=== PATIENT | female | born 1945 | race Caucasian/White ===

== ENCOUNTER 2021-03-09 20:27 | Inpatient (IN) | payer MEDICARE, SELFPAY ==
--- NOTE | ~2021-03-09 | MR_ITS ---
EXAMINATION: MR abdomen wo/w con DATE: 03/15/2021 13:15 INDICATION: Liver mass. TECHNIQUE: Magnetic resonance imaging (MRI) of the abdomen was performed without and with 17 mL Multi Anna intravenous contrast. Sequences included coronal T2-weighted FS FSE, coronal and axial FS FIEST A, axial T2-weighted FSE, coronal LAVA-flex, axial STIR FSE, axial DWI, axial dual-echo T1-weighted F SPGR, and axial LAVA. Postcontrast sequences included coronal LAVA-flex and a time course of axial LA VA. COMPARISON: CT abdomen and pelvis 03/12/2021 FINDINGS: There are small pleural effusions. There is heterogeneous diffuse hepatic steatosis. The gallbladder is absent. Calcifications in the spleen are consistent with old granulomatous disease. The pancreas a nd left adrenal gland are normal. There is a 4.3 cm mass of fat in right adrenal gland, consistent wi th a myelolipoma. There are cysts and hemorrhagic cysts in the kidneys measuring up to 4.5 cm on the right. There are no pathologically enlarged lymph nodes. There is no free intraperitoneal fluid. IMPRESSION: 1. Heterogeneous diffuse hepatic steatosis correlating with the CT abnormalities. Reviewed, dictated and finalized at location A. IMPRESSION: 1. Heterogeneous diffuse hepatic steatosis correlating with the CT abnormalitie s.
--- NOTE | ~2021-03-09 | CT_ITS ---
EXAMINATION: CT abdomen pelvis wo con DATE: 03/09/2021 23:11 INDICATION: Generalized abdominal pain. TECHNIQUE: Computed tomography (CT) of the abdomen and pelvis was performed without intravenous contr ast. Automated exposure control and iterative reconstruction technique were employed. The dose-length product was 909.33 mGy-cm. COMPARISON: None. FINDINGS: The visualized portions of the lung bases demonstrate mild atelectasis. No pleural effusion . The heart size is normal. There are coronary artery calcifications. No pericardial effusion. There is diffuse hepatic steatosis. There is a 1.3 cm mass in left hepatic lobe. There is a 2.5 cm mass in right hepatic lobe. Calcifications in the spleen are consistent with old granulomatous disease. The g allbladder is absent. The pancreas and left adrenal gland are normal. There is a 4.0 cm mass in right adrenal gland containing fat, consistent with a myelolipoma. There are cysts in the kidneys measurin g up to 4.3 cm on the right. There are masses in both kidneys measuring soft tissue attenuation measu ring up to 2.6 cm on the right. There are no dilated loops of bowel. The appendix is not visualized. There are no pathologically enlarged lymph nodes. There is no free intraperitoneal fluid. There is a small right inguinal hernia containing fat. There is a small hematoma superficial to the right inguin al vessels. There is an old healed fracture of left inferior pubic ramus. There is a burst fracture o f L1, likely chronic. IMPRESSION: 1. Two liver masses measuring up to 2.5 cm, which may be benign masses or metastatic disease. Abdomen MRI without and with contrast is recommended. 2. Bilateral kidney masses measuring up to 2.6 cm that may be hemorrhagic cysts and/or neoplasm(s). A bdomen MRI without and with contrast is recommended. Reviewed, dictated and finalized at location A. IMPRESSION: 1. Two liver masses measuring up to 2.5 cm, which may be benign masses or metas tatic disease. Abdomen MRI without and with contrast is recommended. 2. Bilateral kidney masses measuring up to 2.6 cm that may be hemorrhagic cysts and/or neoplasm(s). Abdomen MRI without and with contrast is recommended.
--- NOTE | ~2021-03-09 | XR_ITS ---
EXAMINATION: XR chest 2V 03/14/2021 14:10 INDICATION: Fever PROCEDURE: 2 view chest COMPARISON: 03/09/2021 FINDINGS: The lungs are clear. The cardiomediastinal silhouette is within normal limits. There are no pleural effusions. There is no pneumothorax suspected. Status post median sternotomy for CABG. IMPRESSION: 1: NO ACUTE CARDIOPULMONARY DISEASE. Reviewed, dictated and finalized at location A.
--- NOTE | ~2021-03-09 | XR_ITS ---
EXAMINATION: XR chest 2V DATE: 03/09/2021 21:34 INDICATION: Shortness of breath. TECHNIQUE: Frontal and lateral views of the chest were obtained. COMPARISON: None. FINDINGS: The chest demonstrates clear lungs without pneumonia, pleural effusion, or pneumothorax. Th e heart size is normal. Median sternotomy wires and mediastinal surgical clips are seen, likely from prior coronary artery bypass grafting. There is a chronic compression fracture of L1. IMPRESSION: 1. No acute cardiopulmonary disease. Reviewed, dictated and finalized at location A.
--- NOTE | ~2021-03-09 | CT_ITS ---
EXAMINATION: CT abdomen pelvis w con DATE: 03/12/2021 16:44 INDICATION: Bacteremia. TECHNIQUE: Computed tomography (CT) of the abdomen and pelvis was performed with 100 mL Omnipaque 350 intravenous contrast. Automated exposure control and iterative reconstruction technique were employe d. The dose-length product was 1011.29 mGy-cm. COMPARISON: CT abdomen and pelvis 03/09/2021 FINDINGS: The visualized portions of the lung bases demonstrate mild atelectasis. No pleural effusion . The heart size is normal. There are coronary artery calcifications. No pericardial effusion. There is heterogeneous diffuse hepatic steatosis. There is a 1.3 cm mass in left hepatic lobe. There is a 2 .5 cm mass in right hepatic lobe. These findings are indeterminate for contrast enhancement. The gall bladder is absent. Calcifications in the spleen are consistent with old granulomatous disease. The pa ncreas and left adrenal gland are normal. There is a 4.3 cm mass in right adrenal gland containing fa t, consistent with a myelolipoma. There are cysts and hemorrhagic cysts in the kidneys measuring up t o 3.9 cm on the right. There are no dilated loops of bowel. The appendix is not visualized. There are no pathologically enlarged lymph nodes. There is no free intraperitoneal fluid. There is an old heal ed fracture of left inferior pubic ramus. There is a burst fracture of L1, likely chronic. IMPRESSION: 1. Two liver masses measuring up to 2.5 cm, which may be benign masses or metastatic disease. Abdomen MRI without and with contrast is recommended. Reviewed, dictated and finalized at location A. IMPRESSION: 1. Two liver masses measuring up to 2.5 cm, which may be benign masses or metas tatic disease. Abdomen MRI without and with contrast is recommended.
--- NOTE | ~2021-03-09 | US_ITS ---
EXAMINATION: US venous doppler [facility] DATE: 03/12/2021 11:04 INDICATION: Left lower limb pain TECHNIQUE: Spears scale images without and with compression and Doppler images of the left lower extrem ity veins were obtained. COMPARISON: None FINDINGS: The left common femoral vein, profunda femoral vein, femoral vein, popliteal vein, peroneal trunk, posterior tibial veins, and greater saphenous vein are patent. IMPRESSION: 1. Patent left lower extremity veins. No evidence of deep venous thrombosis. Reviewed, dictated and finalized at location A.
--- NOTE | ~2021-03-09 | XR_ITS ---
XR chest 2V DATE: 03/11/2021 13:26 INDICATION: Shortness of breath. Bacteremia. TECHNIQUE: AP and lateral views COMPARISON: 03/26/2021 AP and lateral chest FINDINGS: Status post sternotomy. Cardiomegaly. Aortic arch and coronary artery calcification. No pul monary vascular congestion or pleural effusion or pneumothorax. The lungs are clear of infiltrate or consolidation. Osteopenia. Chronic loss of height and anterior wedging of L1. Degenerative spurring of the thoracic spine. IMPRESSION: Cardiomegaly Aortic calcification No active urinary disease Reviewed, dictated and finalized at location B.
--- NOTE | ~2021-03-09 | US_ITS ---
EXAMINATION: US abdomen limited DATE: 03/11/2021 10:07 INDICATION: Liver masses on CT TECHNIQUE: Multiple grayscale and Doppler ultrasound images of the abdomen were obtained. COMPARISON: 03/09/2021 FINDINGS: The head and body of the pancreas are normal. The pancreatic tail is obscured by bowel gas. The liver appears normal with normal echogenicity and echotexture. The liver masses described on CT are not demonstrated. No surface nodularity. Normal hepatopetal flow in the main portal vein. The gal lbladder is surgically absent. The normal common bile duct measures 3 mm. There is a 1.8 cm hypoechoi c mass of the right kidney. A 1.6 cm mass of the mid kidney appears partially cystic. There is a 4.1 cm cyst of the right kidney lower pole. IMPRESSION: 1. Liver masses described on recent CT not demonstrated. Further evaluation by MRI without and with c ontrast is recommended. 2. Indeterminate right kidney masses which can be simultaneously evaluated by MRI without and with co ntrast. Reviewed, dictated and finalized at location A. IMPRESSION: 1. Liver masses described on recent CT not demonstrated. Further evaluation by MRI without and with contrast is recommended. 2. Indeterminate right kidney masses which can be simultaneously evaluated by M RI without and with contrast.
[2021-03-09 20:23] VITALS: BP 127/63; PULSE 82; RESP 19; TEMP 38.8; O2SAT 100
--- NOTE | 2021-03-09 21:06 | ECG_ITS ---
Measurements Intervals [place] Rate: 84 P: 30 AL: 153 QRS: -65 QRSD: 142 T: 61 QT: 403 QTc: 476 Interpretive Statements SINUS RHYTHM WITH FREQUENT VENTRICULAR PREMATURE COMPLEXES RIGHT BUNDLE BRANCH BLOCK LEFT ANTERIOR FASCICULAR BLOCK BASELINE ARTIFACT- I, II, AVR, AVL ABNORMAL ECG Electronically Signed On 03-10-2021 6:02:28 CDT by Jair Kellogg D.O.
[2021-03-09 22:18] LABS: Glucose Point of Care > 500 mg/dl (65-105)
[2021-03-09] MEDS: SODIUM CHLORIDE 0.9% IV 1,000 ML 999 ML IV CONT ×2 (22:23→23:23)
[2021-03-09 22:24] LABS: Basophils Percent Auto 0.1 % (0.2-1.2); Eosinophils Percent Auto 0.1 % (0-4.4); Hemoglobin 11.5 g/dL (12.0-15.0); Immature Granulocyte Absolute 0.09 K/mm3 (0.00-0.031); Immature Granulocyte Percent A 1.1 % (0-0.5); Lymphocytes Absolute Auto 0.57 K/mm3 (0.9-3.2); Lymphocytes Percent Auto 7.1 % (18.3-44.2); Mean Corpuscular HGB Conc 31.9 g/dl (32-36); Mean Corpuscular Hemoglobin 29.6 pg (26-34); Mean Corpuscular Volume 92.5 fl (80-100); Mean Platelet Volume 12.4 fl (7.4-10.4); Monocytes Absolute Auto 0.5 K/mm3 (0.1-0.6); Monocytes Percent Auto 6.3 % (2.6-8.5); Neutrophils Absolute Auto 6.8 K/mm3 (1.3-6.7); Neutrophils Percent Auto 85.3 % (45.5-73.1); Platelet Count Result 180 k/mm3 (150-375); Red Blood Count 3.89 M/mm3 (4.2-5.4); Red Cell Distribution Width 14.9 % (11.5-14.5)
[2021-03-09 22:33] LABS: Add Urine Microscopic? YES; Appearance Urine Clear (Clear); Bacteria Urine Trace /hpf; Bilirubin Urine Negative (Negative); Blood Urine 1+ (Negative); Color Urine Yellow (Yellow); Glucose Urine UA 3+ mg/dL (Negative); Ketones Urine Negative (Negative); Leukocyte Esterase Ur Negative LEU/UL (Negative); Mucus Urine Rare /lpf; Nitrate Urine Negative (Negative); Protein Urine 1+ mg/dL (Negative); RBC Urine 0-2 /hpf (0-2); Squamous Epithelial Cell Urine Rare /hpf (Few); Urobilinogen Urine Negative mg/dL (<2.0)
[2021-03-09 22:35] LABS: Ethanol < 10 mg/dL (<10)
[2021-03-09 22:40] LABS: Alanine Aminotransferase 26 U/L (4-35); Albumin Level 3.9 g/dL (3.5-5.1); Alkaline Phosphatase 187 U/L (38-126); Anion Gap 11 mmol/L (8-16); Aspartate Amino Transferase 24 U/L (14-36); Bilirubin,Total 0.7 mg/dL (0.2-1.3); Blood Urea Nitrogen 63 mg/dL (7-17); Calcium 9.7 mg/dL (8.4-10.2); Carbon Dioxide 22 mmol/L (22-30); Chloride 102 mmol/L (98-107); Estimated Glomerular Filt Rate 37; Glucose 613 mg/dL (65-110); Potassium 4.6 mmol/L (3.4-5.0); Sodium 135 mmol/L (137-145)
[2021-03-09 22:41] LABS: Lipase 367 U/L (23-300)
[2021-03-09 22:43] LABS: Lactic Acid Reflex 1.3 mmol/L (0.7-2.1)
[2021-03-09 22:52] LABS: NT Pro B Type Natriuretic Pept 3050 pg/mL (5-100)
[2021-03-09 23:08] LABS: Troponin I 0.037 ng/mL (0.000-0.034)
[2021-03-09 23:49] VITALS: BP 94/62; PULSE 76; RESP 15; O2SAT 98
--- NOTE | 2021-03-09 23:59 | ED.GENADULT ---
HPI - General Adult General Chief complaint: Weakness Stated complaint: confused Time Seen by Provider: 03/09/21 21:05 History of Present Illness HPI narrative: Patient is a 75-year-old female who presents the emergency department with chief complaint of generalized weakness. Patient reports that for the last week she has been feeling weaker than normal and reports that today while she was at a hotel as her visiting from [place] she tried to get up off the toilet and stood there and was very weak and was somewhat confused. Upon arrival to the emergency department the patient was alert and oriented but did have a elevated temperature. Patient reports she has been vaccinated for Covid states a little bit of abdominal discomfort and some nausea denies focal deficit and cough denies dysuria. Related Data Allergies Allergy/AdvReac Type Severity Reaction Status Date / Time Penicillins Allergy Unknown Verified 03/09/21 20:55 Review of Systems Review of Systems: A 10 system review of systems was completed on the patient and is negative except for what is stated in the HPI. Nursing and ancillary documentation was reviewed. [facility] Social History Social History Gender identity (if verbalized by the patient): Female Comments History of coronary artery disease type 2 diabetes requiring long-acting insulin. Social history the patient lives in [place] and is visiting from out of town Exam Narrative: GENERAL: Well-appearing, well-nourished, and in no acute distress. HEAD: Normocephalic, atraumatic. EYES: PERRLA and EOMI. ENT: Nares clear, no rhinorrhea or epistaxis. Mucous membranes moist. NECK: Supple. CHEST: Clear to auscultation. No respiratory distress. HEART: Regular rate and rhythm. No murmur heard. Normal peripheral pulses. ABDOMEN: Soft, nontender, nondistended, normal active bowel sounds. EXTREMITIES: Normal range of motion. No edema. SKIN: Warm, dry, no rash. NEURO: No focal deficits. Alert and oriented x3. PSYCH: Normal mood and affect. Course Vital Signs Vital signs: Vital Signs Temperature 38.8 C H 03/09/21 20:23 Pulse Rate 82 03/09/21 20:23 Respiratory Rate 19 03/09/21 20:23 Blood Pressure 127/63 03/09/21 20:23 Pulse Oximetry 100 03/09/21 20:23 Temperature 38.8 C H 03/09/21 20:23 Pulse Rate 78 03/10/21 00:01 Respiratory Rate 20 03/10/21 00:01 Blood Pressure 110/78 03/10/21 00:01 Pulse Oximetry 99 03/10/21 00:01 Medical Decision Making Vital Signs Vital Signs: Vital Signs Temperature 38.8 C H 03/09/21 20:23 Pulse Rate 82 03/09/21 20:23 Respiratory Rate 19 03/09/21 20:23 Blood Pressure 127/63 03/09/21 20:23 Pulse Oximetry 100 03/09/21 20:23 Temperature 38.8 C H 03/09/21 20:23 Pulse Rate 78 03/10/21 00:01 Respiratory Rate 20 03/10/21 00:01 Blood Pressure 110/78 03/10/21 00:01 Pulse Oximetry 99 03/10/21 00:01 Lab Data Result diagrams: 03/09/21 22:13 03/09/21 22:13 Labs: Lab Results 03/09/21 03/09/21 03/09/21 Range/Units 22:04 22:13 22:13 WBC 8.0 (4.5-10.0) K/mm3 RBC 3.89 L (4.2-5.4) M/mm3 Hgb 11.5 L (12.0-15.0) g/dL Hct 36.0 L (37.0-47.0) % MCV 92.5 (80-100) fl MCH 29.6 (26-34) pg MCHC 31.9 L (32-36) g/dl RDW 14.9 H (11.5-14.5) % Plt Count 180 (150-375) k/mm3 MPV 12.4 H (7.4-10.4) fl Immature Gran % (Auto) 1.1 H (0-0.5) % Neut % (Auto) 85.3 H (45.5-73.1) % Lymph % (Auto) 7.1 L (18.3-44.2) % [place] % (Auto) 6.3 (2.6-8.5) % Eos % (Auto) 0.1 (0-4.4) % Baso % (Auto) 0.1 L (0.2-1.2) % Lymph # (Auto) 0.57 L (0.9-3.2) K/mm3 [place] # (Auto) 0.5 (0.1-0.6) K/mm3 Eos # (Auto) 0.0 (0-0.3) K/mm3 Baso # (Auto) 0.0 (0.0-0.1) K/mm3 Abs Immat Gran (auto) 0.09 H (0.00-0.031) K/mm3 Absolute Neuts (auto) 6.8 H (1.3-6.7) K/mm3 Absolute
[2021-03-10] VITALS (20 sets, daily range): BP systolic 106–142; BP diastolic 52–78; PULSE 63–78; RESP 15–20; TEMP 36–37.2; O2SAT 95–100; BMI 36.8
[2021-03-10 00:15] LABS: Glucose Point of Care > 500 mg/dl (65-105)
[2021-03-10] MEDS: INSULIN HUMAN REGULAR (*BKC) 100 UNITS/ML 10 UNITS IV PUSH (00:20)
--- NOTE | 2021-03-10 01:09 | PM.IMHP ---
H&P: HPI History of Present Illness Date/Time: 03/10/21 01:09 Chief Complaint: ALTERED MENTAL STATUS Narrative: THIS IS A 75-YEAR-OLD FEMALE WITH PAST MEDICAL HISTORY SIGNIFICANT FOR CORONARY ARTERY DISEASE STATUS POST CORONARY ARTERY BYPASS GRAFT, TYPE 2 DIABETES MELLITUS INSULIN DEPENDENT, HYPERTENSION, DYSLIPIDEMIA. PATIENT IS VISITING FROM [place] SHE WAS VISITING FAMILY [facility] FOR HER SISTER'S LENNY WHO IN [place] FROM COVID-19. PATIENT IS STAYING WITH HER AT A LOCAL HOTEL AND SHE CAN TELL WHY SHE IS IN THE EMERGENCY ROOM APPARENTLY SHE WAS BROUGHT TO THE EMERGENCY ROOM DUE TO ALTERED MENTAL STATUS AND JUST FEELING WEAK. UPON ARRIVAL TO THE EMERGENCY ROOM SHE WAS FOUND TO HAVE A TEMPERATURE OF 101? AND HER BLOOD GLUCOSE WAS OVER 600. PATIENT STATES THAT SHE HAS BEEN HER USUAL STATE OF HEALTH UP UNTIL THIS SHE DENIES ANY SHORTNESS OF BREATH COUGH SPUTUM PRODUCTION CHEST PAIN DIZZINESS LIGHTHEADEDNESS FATIGUE PAIN OR BURNING WITH URINATION SHE HAS BEEN VACCINATED WITH MOTOR NO FOR COVID-19. PRELIMINARY WORKUP WAS SIGNIFICANT FOR BMP WITH A SERUM GLUCOSE OF 6 HOME CHEST X-RAY WAS CLEAR CT OF ABDOMEN AND PELVIS WITH LIVER AND KIDNEY FINDINGS WHICH PATIENT IS AWARE OF AND HAS BEEN FOLLOWED UP AT HER LOCAL PLACE OF RESIDENCE. Review of Systems Review of Systems: FEELING TIRED AND HAD A FEVER UPON ARRIVAL TO EMERGENCY ROOM Constitutional: Constitutional: Denies chills, Reports fatigue, Reports fever(s), Reports lethargy, Denies malaise, Denies night sweats, Denies poor appetite and Reports weakness Eyes: Eyes: Denies change in vision ENT: Denies dysphagia, Denies nasal congestion, Denies nasal discharge, Denies nasal obstruction and Denies odynophagia Cardiovascular: Cardiovascular: Denies chest pain, Denies irregular heart rhythm, Denies claudication, Denies radiating jaw, neck or arm pain, Denies palpitations and Denies dyspnea on exertion Respiratory: Respiratory: Denies cough and Denies dyspnea Gastrointestinal: Gastrointestinal: Denies abdominal pain, Denies diarrhea, Denies nausea and Denies vomiting Genitourinary: Genitourinary: Reports no additional female genitourinary complaints Musculoskeletal: Musculoskeletal: Reports no additional musculoskeletal complaints Integumentary/Breasts: Skin/Breast: Reports system reviewed and no additional complaints, except as docu Neurologic: Reports confusion, Denies focal weakness and Denies Sensory deficit (Neuro) Psychiatric: Psychiatric: Reports no additional psychiatric complaints Endocrine: Endocrine: Reports no additional endocrine complaints Hematologic/Lymphatic: Hematologic/Lymphatic: Reports no additional hematologic/lymphatic complaints Allergic/Immunologic: Allergic/Immunologic: Reports no additional allergic/immunologic complaints [facility] Social History Social History Gender identity (if verbalized by the patient): Female Meds Home Medications and Allergies Allergies Allergy/AdvReac Type Severity Reaction Status Date / Time Penicillins Allergy Unknown Verified 03/09/21 20:55 Vital Signs Vital Signs - 24 hr 03/09/21 20:23 03/09/21 23:49 03/10/21 00:01 Temperature 101.8 F H Pulse Rate 82 76 78 Respiratory Rate 19 15 20 Blood Pressure 127/63 94/62 L 110/78 Pulse Oximetry 100 98 99 Exam Narrative: LAYING IN GOOD Const: General: cooperative, comfortable, no acute distress, well developed, alert, awake and other ( WELL-APPEARING) Nutritional Appearance: average body habitus Orientation/consciousness: patient oriented x3 HENMT: Head: normal to inspection, normocephalic and atraumatic Ears: hearing grossly normal bilaterally General nose exam: Normal external nose present Face and sinus: normal facial exam Mouth: Yes Normal oral and palatal mucosa present Eyes: General: appearance normal, both eyes and all related structures Alignment and Position: alignment no
[2021-03-10 01:25] LABS: Glucose Point of Care 453 mg/dl (65-105)
--- NOTE | 2021-03-10 05:24 | PC.NURSE ---
This patient, Shirin Antonio, was admitted to IMU Room 213-01 on 03/10/21 at 0445. Patient/family oriented to hospital policies and general routines including ID bracelet, bed and alarms, visiting hours, pain management, procedures, bathroom and other care routines, personal items, smoking policy, room service/diet, and visiting hours. Information on how to activate the Rapid Response Team has been discussed. Patient/Family are encouraged to report perceived risks to care and to ask questions if they do not understand what they are told or what they should do.
[2021-03-10 06:04] LABS: Glucose Point of Care 392 mg/dl (65-105)
[2021-03-10] MEDS: SODIUM CHLORIDE 0.9% IV 1,000 ML 125 ML IV CONT (07:34)
[2021-03-10 08:45] LABS: Glucose Point of Care 384 mg/dl (65-105)
[2021-03-10 08:50] LABS: Hemoglobin A1C 12.8 % (<5.7)
[2021-03-10 08:51] LABS: Troponin I 0.044 ng/mL (0.000-0.034)
[2021-03-10] MEDS: INSULIN ASPART (*BKC) 100 UNITS/ML SUB-Q ×2 (09:41)
[2021-03-10] MEDS: COLCHICINE 0.6 MG TABLET PO (09:42)
[2021-03-10] MEDS: CLOPIDOGREL BISULFATE 75 MG TABLET PO (09:42)
[2021-03-10] MEDS: ASPIRIN 81 MG ENTERIC TABLET PO (09:43)
[2021-03-10] MEDS: OMEGA 3 POLYUNSAT FATTY ACIDS 1 GM CAP 2 GM PO ×2 (09:43→16:40)
[2021-03-10] MEDS: ATORVASTATIN 40 MG TABLET 80 MG PO (09:43)
[2021-03-10] MEDS: METOPROLOL SUCCINATE EXT REL 25 MG TABCR PO (09:43)
[2021-03-10] MEDS: LEVOTHYROXINE SODIUM 112 MCG TABLET PO (09:43)
[2021-03-10] MEDS: allopurinoL 100 MG TABLET PO (09:43)
[2021-03-10] MEDS: FUROSEMIDE INJ 40 MG/4 ML VIAL IV PUSH ×2 (09:44→16:41)
[2021-03-10] MEDS: PREGABALIN (*CRX) 75 MG CAPSULE 150 MG PO ×2 (10:38→16:41)
[2021-03-10 11:09] LABS: Troponin I 0.043 ng/mL (0.000-0.034)
[2021-03-10 11:56] LABS: Glucose Point of Care 409 mg/dl (65-105)
[2021-03-10] MEDS: INSULIN ASPART (*BKC) 100 UNITS/ML 12 UNITS SUB-Q (13:04)
[2021-03-10 16:33] LABS: Glucose Point of Care 282 mg/dl (65-105)
--- NOTE | 2021-03-10 16:56 | PM.IMPN ---
Progress Note: A&P Assessment and Plan (1) Acute hyperglycemia: Code(s): R73.9 - Hyperglycemia, unspecified Status: Acute Assessment and Plan: Glucose as high as 613 but now 282 -Continue 5units of scheduled insulin with SSI -Start lantus (increase dose compared to home dose toujeo u-300) -continue home glimepiride -A1c 12.8 but pt states her last A1c earlier this summer was 7.9 (2) Dehydration: Code(s): E86.0 - Dehydration Status: Acute Assessment and Plan: Resolved (3) Generalized weakness: Code(s): R53.1 - Weakness Status: Acute Assessment and Plan: LIKELY SECONDARY TO HYPERGLYCEMIA -PT/oT (4) Febrile illness: Code(s): R50.9 - Fever, unspecified Status: Acute Assessment and Plan: Await COVID and FLU -Spoke with radiology about CT findings and they don't believe it is infection but would recommend contrast if we are considering abdominal infection with no other source of infection. May consider doing a CT abdomen with contrast tomorrow if covid and flu negative. But pt has CKD so I don't want to do this unnecessarily. (5) Congestive heart failure: Code(s): I50.9 - Heart failure, unspecified Status: Acute Assessment and Plan: Await echo -trop flat, no ACS suspected -EKG and tele with pvc, check mag -appears euvolemic (6) BERRY (acute kidney injury): Code(s): N17.9 - Acute kidney failure, unspecified Status: Acute Assessment and Plan: Cr 1.4 and pt states she has some hx of kidney dz -bmp in the AM (7) Elevated troponin: Code(s): R77.8 - Other specified abnormalities of plasma proteins Status: Acute Assessment and Plan: No evidence of ACS -await echo -trop flats -continue tele Time Spent With Patient Time with patient: 25 - 35 minutes Subjective Date/time seen: 03/10/21 16:56 Interval history: Pt is a 75-year-old female here for fever and hyperglycemia. Patient was seen today and is feeling okay. She says she feels tired and weak but those are her only complaints. She denies nausea, vomiting, fevers, chills, cough, constipation, diarrhea, chest pain, sob, or abdominal pain. she is surprised that her A1c is so high as it was 7.5 earlier this summer. Her sister has and she has been eating worse. She has been taking her insulin as prescribed. No rashes or wounds. Review of Systems Review of Systems: All systems reviewed & are unremarkable except as noted in HPI and below Exam Narrative: General: Well developed well nourished patient in NAD HEENT: normocephalic Neck: supple Neuro: Alert and oriented x4 CV:RRR. tele showing NSR with episodes of trigeminy and occasional pvc Resp:fine crackles in the RLL. Otherwise clear Abd: Soft, non distended. No pain to palpation. Positive bowel sounds. no pain in the RUQ Extremities: No swelling or erythema. Very mild bruise to the left ambrocio with pain to that area but no pain to the calf Objective Data Vital Signs Vital Signs: Vital Signs - 24 hr 03/09/21 20:23 03/09/21 23:49 03/10/21 00:01 Temperature 101.8 F H Pulse Rate 82 76 78 Respiratory Rate 19 15 20 Blood Pressure 127/63 94/62 L 110/78 Pulse Oximetry 100 98 99 03/10/21 01:01 03/10/21 02:53 03/10/21 04:45 Temperature 98.9 F Pulse Rate 74 72 71 Respiratory Rate 19 15 20 Blood Pressure 106/63 106/78 141/69 H Pulse Oximetry 100 100 100 03/10/21 06:00 03/10/21 08:00 03/10/21 09:27 Temperature 97.1 F L Pulse Rate 76 69 65 Respiratory Rate 20 Blood Pressure 142/52 H Pulse Oximetry 99 03/10/21 09:43 03/10/21 10:00 03/10/21 12:00 Temperature Pulse Rate 78 77 67 Respiratory Rate Blood Pressure Pulse Oximetry 03/10/21 12:29 03/10/21 14:00 Temperature 96.8 F L Pulse Rate 69 63 Respiratory Rate 20 Blood Pressure 120/62 Pulse Oximetry 97 Intake/Output Intake/Outp
[2021-03-10] MEDS: INSULIN ASPART (*BKC) 100 UNITS/ML 6 UNITS SUB-Q (17:01)
[2021-03-10 18:07] LABS: Magnesium 1.6 mg/dL (1.6-2.3)
[2021-03-10 18:08] LABS: SARS-CoV-2 RNA PCR Negative
[2021-03-10] MEDS: ACETAMINOPHEN 325 MG TABLET 650 MG PO (20:49)
[2021-03-10] MEDS: INSULIN GLARGINE (*BKC) 100 UNITS/ML 35 UNITS SUB-Q (20:50)
[2021-03-10 21:05] LABS: Glucose Point of Care 347 mg/dl (65-105)
[2021-03-11] VITALS (13 sets, daily range): BP systolic 86–122; BP diastolic 39–57; PULSE 59–107; RESP 12–20; TEMP 36–37.2; O2SAT 94–100
--- NOTE | 2021-03-11 | ECHO_ITS ---
Patient Info Name: Shirin Antonio Age: 75 years : 1945 Gender: Female Ht: 61 in Wt: 194 lbs BSA: 1.99 m2 HR: 97 bpm BP: 110 / 49 mmHg Technical Quality: Fair Exam Date: 03/11/2021 11:29 AM Exam Location: [facility] Pulmonary Exam Room: 213 Patient Status: Inpatient Admit Date: 03/10/2021 Staff Ordering Physician: Cassy Rodriguez PA-C Cryptologic Supervisor: Hoa Khan RDCS Attending Provider: Cassy Rodriguez PA-C Referring Physician: Jennifer PATEL; Exam Type: CA echo doppler color flow Study Info Indications - trigeminy cad cabg Complete two-dimensional, color flow and Doppler transthoracic echocardiogram is performed. Summary 1. Complete two-dimensional, color flow and Doppler transthoracic echocardiogram is performed. 2. Left ventricular systolic function is normal, estimated at 30-35%. 3. There is mildly increased left ventricular wall thickness. 4. The left ventricular diastolic function is grade I diastolic dysfunction. 5. Hypokinesis anteroseptum, mid and apical inferoseptum, apical, apical lateral, apical inferior barrera. 6. Left atrial chamber dimension is mildly enlarged. 7. There is moderate aortic valve calcification. 8. There is no aortic valve stenosis. 9. There is moderate mitral valve calcification. 10. There is trace mitral valve regurgitation. 11. There is mild tricuspid valve regurgitation. 12. No pulmonary hypertension, estimated pulmonary arterial systolic pressure is 33 mmHg. 13. There is mild pulmonic regurgitation. Left Ventricle Left ventricular chamber dimension is normal. Left ventricular systolic function is normal, estimated at 30-35%. There is mildly increased left ventricular wall thickness. Left ventricular septal wall motion is normal. The left ventricular diastolic function is grade I diastolic dysfunction. Global longitudinal strain is abnormal at -8 %. Right Ventricle Right ventricular chamber dimension is normal. Right ventricular systolic function is normal. Left Atria Left atrial chamber dimension is mildly enlarged. Right Atria Right atrial chamber dimension is normal. Atrial Septum Intact interatrial septum visualized by color flow imaging. Aortic Valve The aortic valve is trileaflet. There is no aortic valve stenosis. There is no aortic valve regurgitation. There is moderate aortic valve calcification. Pulmonic Valve The pulmonic valve is normal. There is no pulmonic valve stenosis. There is mild pulmonic regurgitation. Mitral Valve The mitral valve has normal leaflets. There is no mitral valve stenosis. There is trace mitral valve regurgitation. There is moderate mitral valve calcification. Tricuspid Valve The tricuspid valve leaflets are normal. There is no significant tricuspid valve stenosis. There is mild tricuspid valve regurgitation. No pulmonary hypertension, estimated pulmonary arterial systolic pressure is 33 mmHg. Pericardium/Pleural The pericardium appears normal. There is no pericardial effusion. Inferior Vena Cava Normal inferior vena cava with >50% collapse upon inspiration consistent with Empty right atrial pressure, 10 mmHg. Aorta The aortic root size at the sinus of Valsalva is normal. The prox ascending aorta size is normal. Left Ventricular Outflow Tract Name Value Normal
[2021-03-11 00:08] LABS: Influenza Control Positive
[2021-03-11] MEDS: ACETAMINOPHEN 325 MG TABLET 650 MG PO ×2 (00:26→11:05)
[2021-03-11 01:51] LABS: Glucose Point of Care 352 mg/dl (65-105)
[2021-03-11 05:13] LABS: Basophils Absolute Auto 0.1 K/mm3 (0.0-0.1); Basophils Percent Auto 0.8 % (0.2-1.2); Eosinophils Percent Auto 0.2 % (0-4.4); Hematocrit 33.6 % (37.0-47.0); Hemoglobin 10.6 g/dL (12.0-15.0); Immature Granulocyte Absolute 0.07 K/mm3 (0.00-0.031); Immature Granulocyte Percent A 1.1 % (0-0.5); Lymphocytes Absolute Auto 0.19 K/mm3 (0.9-3.2); Lymphocytes Percent Auto 2.9 % (18.3-44.2); Mean Corpuscular HGB Conc 31.5 g/dl (32-36); Mean Corpuscular Hemoglobin 29.4 pg (26-34); Mean Corpuscular Volume 93.1 fl (80-100); Mean Platelet Volume 12.2 fl (7.4-10.4); Monocytes Absolute Auto 0.1 K/mm3 (0.1-0.6); Monocytes Percent Auto 0.9 % (2.6-8.5); Neutrophils Absolute Auto 6.1 K/mm3 (1.3-6.7); Neutrophils Percent Auto 94.1 % (45.5-73.1); Platelet Count Result 180 k/mm3 (150-375); Red Blood Count 3.61 M/mm3 (4.2-5.4); Red Cell Distribution Width 14.6 % (11.5-14.5); White Blood Count 6.5 K/mm3 (4.5-10.0)
[2021-03-11 05:23] LABS: Magnesium 1.3 mg/dL (1.6-2.3)
[2021-03-11 05:31] LABS: Anion Gap 10 mmol/L (8-16); Blood Urea Nitrogen 49 mg/dL (7-17); Calcium 9.1 mg/dL (8.4-10.2); Carbon Dioxide 22 mmol/L (22-30); Chloride 106 mmol/L (98-107); Estimated CRCL calculation 33 ml/min; Estimated Glomerular Filt Rate 40; Glucose 272 mg/dL (65-110); Potassium 3.5 mmol/L (3.4-5.0); Sodium 138 mmol/L (137-145)
[2021-03-11] MEDS: LEVOTHYROXINE SODIUM 112 MCG TABLET PO (06:07)
[2021-03-11 08:09] LABS: Glucose Point of Care 278 mg/dl (65-105)
[2021-03-11] MEDS: MAGNESIUM SULF 2 GM/WATER 50ML 2 GM/50 ML BAG IVPB (09:01)
[2021-03-11] MEDS: PREGABALIN (*CRX) 75 MG CAPSULE 150 MG PO (09:02)
[2021-03-11] MEDS: ATORVASTATIN 40 MG TABLET 80 MG PO (09:04)
[2021-03-11] MEDS: CLOPIDOGREL BISULFATE 75 MG TABLET PO (09:04)
[2021-03-11] MEDS: COLCHICINE 0.6 MG TABLET PO (09:05)
[2021-03-11] MEDS: allopurinoL 100 MG TABLET PO (09:05)
[2021-03-11] MEDS: OMEGA 3 POLYUNSAT FATTY ACIDS 1 GM CAP 2 GM PO ×2 (09:05→16:30)
[2021-03-11] MEDS: ASPIRIN 81 MG ENTERIC TABLET PO (09:05)
[2021-03-11] MEDS: GLIMEPIRIDE 2 MG TABLET PO (09:06)
[2021-03-11] MEDS: INSULIN ASPART (*BKC) 100 UNITS/ML SUB-Q ×4 (09:17→16:29)
--- NOTE | 2021-03-11 11:08 | PM.IMPN ---
Progress Note: A&P Assessment and Plan (1) Bacteremia due to Klebsiella pneumoniae: Code(s): R78.81 - Bacteremia; B96.1 - Klebsiella pneumoniae [K. pneumoniae] as the cause of diseases classified elsewhere Status: Acute Assessment and Plan: Both blood cultures growing Klebsiella pneumonia - unclear source at this time. UA on admission not overly suspicious for UTI and a culture was not sent. Will obtain urine culture. Chest x-ray normal on admission but now she is slightly short of breath so I will reorder a chest x-ray. CT of the abdomen on admission shows liver masses which the patient says is chronic and she sees a specialist for but cannot give me any further detail. I have contacted the primary care physician office in [place] who is going to call me back this afternoon when the doctor is in the office. I did an ultrasound to assess for possible abscess but it did not see anything. They recommend MRI but the patient does have chronic kidney disease. I talked to the radiologist yesterday who said his CT with and without contrast may also help but I want to talk to her primary care physician before obtaining this because it sounds like this is chronic and the patient has borderline kidney function. I am going to ask Infectious Disease to consult and I appreciate their further recommendations (2) Acute hyperglycemia: Code(s): R73.9 - Hyperglycemia, unspecified Status: Acute Assessment and Plan: Glucose as high as 613 but now 278 - increase mealtime insulin to 6units of scheduled insulin with SSI - increase Lantus slightly (increase dose compared to home dose toujeo u-300) -continue home glimepiride -A1c 12.8 but pt states her last A1c earlier this summer was 7.9. glucose acutely worse likely due to infection but A1c does show that this has been an ongoing issue. (3) Dehydration: Code(s): E86.0 - Dehydration Status: Acute Assessment and Plan: Resolved (4) Generalized weakness: Code(s): R53.1 - Weakness Status: Acute Assessment and Plan: due to above (5) Febrile illness: Code(s): R50.9 - Fever, unspecified Status: Acute Assessment and Plan: due to bacteremia, COVID-19 in flu negative -Spoke with radiology about CT findings and they don't believe it is infection but would recommend contrast if we are considering abdominal infection with no other source of infection. May consider doing a CT abdomen with contrast as above. (6) Congestive heart failure: Code(s): I50.9 - Heart failure, unspecified Status: Acute Assessment and Plan: Await echo -trop flat, no ACS suspected -EKG and tele with pvc, Mag slightly low. Will replace -appears euvolemic (7) BERRY (acute kidney injury): Code(s): N17.9 - Acute kidney failure, unspecified Status: Acute Assessment and Plan: Cr 1.3 and pt states she has some hx of kidney dz -bmp in the AM (8) Elevated troponin: Code(s): R77.8 - Other specified abnormalities of plasma proteins Status: Acute Assessment and Plan: No evidence of ACS -await echo -trop flats -likely due to acute infection -continue tele Subjective Date/time seen: 03/11/21 11:08 Interval history: Pt is a 75-year-old female here for bacteremia. Patient was seen today and is doing better than she has been but still not herself. She had an episode of rigors overnight and some confusion per RN. at bedside states she is almost back to her normal and looks much better than when she came in. The patient felt a little short of breath earlier today in the oxygen is helping although she was not hypoxic according to the RN. She denies cough, dyspnea on exertion, fevers, dysuria, hematuria, diarrhea, abdominal pain or leg swelling. She says she has seen a liver specialist in the past for her liver abnormalities and they are just goi
[2021-03-11 12:02] LABS: Glucose Point of Care 383 mg/dl (65-105)
[2021-03-11] MEDS: INSULIN ASPART (*BKC) 100 UNITS/ML 6 UNITS SUB-Q ×2 (13:23→16:30)
[2021-03-11 16:10] LABS: Glucose Point of Care 357 mg/dl (65-105)
[2021-03-11] MEDS: SODIUM CHLORIDE 0.9% IV 500 ML IV CONT (16:11)
[2021-03-11] MEDS: SODIUM CHLORIDE 0.9% IV 1,000 ML 100 ML IV CONT (17:39)
[2021-03-11 21:16] LABS: Glucose Point of Care 263 mg/dl (65-105)
[2021-03-11] MEDS: INSULIN GLARGINE (*BKC) 100 UNITS/ML 38 UNITS SUB-Q (21:50)
[2021-03-12] VITALS (19 sets, daily range): BP systolic 102–136; BP diastolic 40–78; PULSE 67–87; RESP 16–22; TEMP 36.1–36.4; O2SAT 93–100; BMI 36.3
[2021-03-12] MEDS: SODIUM CHLORIDE 0.9% IV 1,000 ML 100 ML IV CONT (03:30)
[2021-03-12 05:14] LABS: Hematocrit 31.7 % (37.0-47.0); Hemoglobin 10.1 g/dL (12.0-15.0); Mean Corpuscular HGB Conc 31.9 g/dl (32-36); Mean Corpuscular Hemoglobin 29.4 pg (26-34); Mean Corpuscular Volume 92.2 fl (80-100); Mean Platelet Volume 12.3 fl (7.4-10.4); Platelet Count Result 213 k/mm3 (150-375); Red Blood Count 3.44 M/mm3 (4.2-5.4); Red Cell Distribution Width 14.9 % (11.5-14.5); White Blood Count 11.3 K/mm3 (4.5-10.0)
[2021-03-12 05:31] LABS: Alanine Aminotransferase 30 U/L (4-35); Alkaline Phosphatase 128 U/L (38-126); Anion Gap 8 mmol/L (8-16); Aspartate Amino Transferase 35 U/L (14-36); Bilirubin,Total 0.3 mg/dL (0.2-1.3); Blood Urea Nitrogen 57 mg/dL (7-17); Calcium 8.3 mg/dL (8.4-10.2); Carbon Dioxide 23 mmol/L (22-30); Chloride 105 mmol/L (98-107); Estimated CRCL calculation 27 ml/min; Estimated Glomerular Filt Rate 32; Glucose 210 mg/dL (65-110); Magnesium 2.1 mg/dL (1.6-2.3); Potassium 3.4 mmol/L (3.4-5.0); Sodium 136 mmol/L (137-145)
[2021-03-12] MEDS: LEVOTHYROXINE SODIUM 112 MCG TABLET PO (05:44)
[2021-03-12 05:50] LABS: CRP 19.1 mg/dL (<1.0)
--- NOTE | 2021-03-12 07:59 | P.CDI_ITS ---
CDI Query Clarification Request -CHF unspecified has been documented -Patient appears euvolemic -03/11 Echo summary: EF 30-35%, grade 1 diastolic dysfunction Please further specify type of CHF: * Systolic * Diastolic * Systolic and Diastolic * Unable to determine
[2021-03-12] MEDS: PREGABALIN (*CRX) 75 MG CAPSULE 150 MG PO ×2 (08:28→16:49)
[2021-03-12] MEDS: POTASSIUM CHLORIDE 20 MEQ TABLET PO (08:28)
[2021-03-12] MEDS: allopurinoL 100 MG TABLET PO (08:29)
[2021-03-12] MEDS: ATORVASTATIN 40 MG TABLET 80 MG PO (08:29)
[2021-03-12] MEDS: OMEGA 3 POLYUNSAT FATTY ACIDS 1 GM CAP 2 GM PO ×2 (08:29→16:50)
[2021-03-12] MEDS: METOPROLOL SUCCINATE EXT REL 25 MG TABCR PO (08:29)
[2021-03-12] MEDS: INSULIN ASPART (*BKC) 100 UNITS/ML 6 UNITS SUB-Q ×3 (08:30→16:49)
[2021-03-12] MEDS: ASPIRIN 81 MG ENTERIC TABLET PO (08:30)
[2021-03-12] MEDS: CLOPIDOGREL BISULFATE 75 MG TABLET PO (08:30)
[2021-03-12] MEDS: GLIMEPIRIDE 2 MG TABLET PO (08:30)
[2021-03-12] MEDS: COLCHICINE 0.6 MG TABLET PO (08:30)
[2021-03-12] MEDS: INSULIN ASPART (*BKC) 100 UNITS/ML SUB-Q ×3 (08:31→16:49)
[2021-03-12 08:50] LABS: Glucose Point of Care 213 mg/dl (65-105)
--- NOTE | 2021-03-12 09:15 | PM.IMPN ---
Progress Note: A&P Assessment and Plan (1) Hypotension: Code(s): I95.9 - Hypotension, unspecified Status: Acute Assessment and Plan: Patient became hypotensive yesterday afternoon and required IV bolus of normal saline - her blood pressure has improved as well as her clinical course today - fluids have been stopped as she appears euvolemic and does have systolic CHF - at the time that she was hypotensive, her antibiotics were broadened to imipenem. Since she is improving, will deescalate to ceftriaxone 2 g - could be due to the Lasix given 03/10/2021, cannot rule out infection as an etiology as well - monitor (2) Bacteremia due to Klebsiella pneumoniae: Code(s): R78.81 - Bacteremia; B96.1 - Klebsiella pneumoniae [K. pneumoniae] as the cause of diseases classified elsewhere Status: Acute Assessment and Plan: Both blood cultures growing Klebsiella pneumonia - unclear source at this time. UA on admission not overly suspicious for UTI and a culture was not sent. urine culture has been sent but was obtained after antibiotics were started. Chest x-ray normal on admission but now she is slightly short of breath And repeat chest x-ray looked okay. she is not hypoxic but using oxygen for comfort. No signs of PE at this time such as hypoxia or tachycardia. CT of the abdomen on admission shows liver masses which the patient says is chronic and she sees a specialist for but cannot give me any further detail. I have contacted the primary care physician office in [place] who Told me patient had an abdominal MRI in June 2020 and abnormalities of the liver were normal cysts as well as the kidneys. I did an ultrasound to assess for possible abscess but it did not see anything. They recommend MRI but the patient does have chronic kidney disease. I talked to the radiologist 03/[address] with and without contrast may also help but This sounds like it has been addressed. I am going to ask Infectious Disease to consult and I appreciate their further recommendations (3) Systolic CHF: Code(s): I50.20 - Unspecified systolic (congestive) heart failure Status: Acute Assessment and Plan: Patient's troponin was slightly elevated on admission but no ACS suspected - Echo done which showed hypokinesis and a decreased EF. Patient has no known history of CHF to her knowledge - she does have an extensive history of cardiac disease in 2018 which she cannot share many details about. She had a hx of NV about 20 years ago with no intervention. In 2018 she had a cardiac cath which sounds like it had a complication and she ended up in the OR and getting stents in the leg. At that time she says she had an open heart surgery and was in the hospital for 3 months. No hx of CHF. She does not recall these events very well. Await records. (4) Acute hyperglycemia: Code(s): R73.9 - Hyperglycemia, unspecified Status: Acute Assessment and Plan: Glucose as high as 613 but now 213 - Continue mealtime insulin of 6units of scheduled insulin with SSI - continue Lantus -continue home glimepiride -A1c 12.8 but PCP confirms that her A1c was 10.5 in January (5) Dehydration: Code(s): E86.0 - Dehydration Status: Acute Assessment and Plan: Resolved (6) Generalized weakness: Code(s): R53.1 - Weakness Status: Acute Assessment and Plan: due to above - continue PT and OT (7) Febrile illness: Code(s): R50.9 - Fever, unspecified Status: Acute Assessment and Plan: due to bacteremia, COVID-19 in flu negative -Spoke with radiology about CT findings and they don't believe it is infection but would recommend contrast if we are considering abdominal infection with no other source of infection. May consider doing a CT abdomen with contrast as above. (8) Congestive heart failure: Code(s): I50.9 - Heart failur
[2021-03-12] MEDS: ACETAMINOPHEN 325 MG TABLET 650 MG PO (09:34)
--- NOTE | 2021-03-12 10:36 | WPDINFPN2 ---
Progress Note: A&P Assessment and Plan (1) Bacteremia due to Klebsiella pneumoniae: Code(s): R78.81 - Bacteremia; B96.1 - Klebsiella pneumoniae [K. pneumoniae] as the cause of diseases classified elsewhere Status: Acute Assessment and Plan: Klebsiella bacteremia with infection, hepatobiliary source. Obed abscess is unlikely but not excluded. REC Ctx 3-4 days more. Then cefdinir x 10 days. Needs MRI, and unless that is diagnostic, tissue diagnosis. Ok with me if the diagnosis is established in [place], with recuperation here before she travels back. Call if Qs Subjective Date/time seen: 03/12/21 10:36 Objective Data Vital Signs Vital Signs: Vital Signs - 24 hr 03/11/21 16:00 03/11/21 17:05 03/11/21 17:30 Temperature 36.6 C Pulse Rate 68 78 Respiratory Rate 12 Blood Pressure 86/48 L 94/43 L Pulse Oximetry 97 03/11/21 18:00 03/11/21 20:00 03/11/21 22:00 Temperature 36.4 C L Pulse Rate 71 65 67 Respiratory Rate 18 Blood Pressure 94/55 L Pulse Oximetry 98 03/11/21 23:47 03/11/21 23:49 03/12/21 00:00 Temperature 36.0 C L Pulse Rate 71 70 Respiratory Rate 20 20 Blood Pressure 101/52 L Pulse Oximetry 98 97 97 03/12/21 02:00 03/12/21 04:00 03/12/21 06:00 Temperature 36.4 C Pulse Rate 71 72 70 Respiratory Rate 16 Blood Pressure 131/60 Pulse Oximetry 99 03/12/21 08:27 03/12/21 08:29 03/12/21 09:17 Temperature 36.2 C L Pulse Rate 76 76 Respiratory Rate 20 Blood Pressure 136/62 Pulse Oximetry 100 93 Intake/Output Intake/Output: Intake & Output 03/09/21 03/10/21 03/11/21 03/12/21 23:59 23:59 23:59 23:59 Intake Total 100 2600 2530 1580 Output Total 2000 1000 600 Balance 221 616 7437 980 Meds/Results Medications: Active Medications Generic Name Dose Route Start Last Admin Trade Name Freq PRN Reason Stop Dose Admin Acetaminophen 650 mg 03/10/21 00:08 03/12/21 09:34 Acetaminophen 325 Mg Tablet PO 650 mg Q4H PRN Administration Mild Pain (1-3) or Fever Allopurinol 100 mg 03/10/21 08:00 03/12/21 08:29 Allopurinol 100 Mg Tablet PO 100 mg DAILY@0800 ROBYN Administration Aspirin 81 mg 03/10/21 09:00 03/12/21 08:30 Aspirin 81 Mg Enteric Tablet PO 81 mg DAILY ROBYN Administration Atorvastatin Calcium 80 mg 03/10/21 09:00 03/12/21 08:29 Atorvastatin 40 Mg Tablet PO 80 mg DAILY ROBYN Administration Clopidogrel Bisulfate 75 mg 03/10/21 09:00 03/12/21 08:30 Clopidogrel Bisulfate 75 Mg Tablet PO 75 mg DAILY ROBYN Administration Colchicine 0.6 mg 03/10/21 09:00 03/12/21 08:30 Colchicine 0.6 Mg Tablet PO 0.6 mg DAILY [facility] Administration Dextrose 12.5 gm 03/10/21 00:08 Dextrose 50% 25 Gm/50 Ml Syringe IV PUSH PRN PRN Hypoglycemia Protocol Enoxaparin Sodium 40 mg 03/12/21 09:20 Enoxaparin 40 Mg/0.4 Ml Syringe SUB-Q DAILY [facility] Fish Oil 2 gm 03/10/21 09:00 03/12/21 08:29 Trego 3 Polyunsat Fatty Acids 1 Gm Cap PO 2 gm BID [facility] Administration Furosemide 40 mg 03/10/21 09:00 03/10/21 16:41 Furosemide Inj 40 Mg/4 Ml Vial IV PUSH 40 mg BID ROBYN Administration Glimepiride 2 mg 03/11/21 08:00 03/12/21 08:30 Glimepiride 2 Mg Tablet PO 2 mg DAILY@0800 [facility] Administration Glucagon 1 mg 03/10/21 00:08 Glucagon For Inj 1 Mg Vial IM PRN PRN Hypoglycemia Protocol Glucose 15 gm 03/10/21 00:08 Glucose Oral Gel 15 Gm Of Glucse In 37.5 Gm Tube PO PRN PRN Hypoglycemia Protocol Dextrose 1,000 mls @ 100 mls/hr 03/10/21 00:08 Dextrose 5% 1,000 Ml IVPB PRN PRN Hypoglycemia Protocol Ceftriaxone Sodium 2 gm in 100 mls @ 200 mls/hr 03/12/21 12:00 Rocephin 2 Gm/D5w 100 Ml IVPB Q24H [facility] Insulin Aspart 3 - 6 units 03/10/21 08:00 03/12/21 08:31 Insulin Aspart (*Bkc) 100 Units/Ml SUB-Q 3 units TIDWM [facility] Administration Protocol Insulin Aspart 6 units
[2021-03-12] MEDS: ENOXAPARIN 40 MG/0.4 ML SYRINGE SUB-Q (12:06)
--- NOTE | 2021-03-12 12:11 | PM.CNCAR ---
Assessment and Plan Additional Plan 75-year-old lady with: Coronary artery disease previous myocardial infarction and previous cardiac surgery several years ago we do not really have much in the way of any details regarding this patient's previous cardiac care and problems however I am consulted to see her because of hypotension and CHF. I do not believe this patient is in the hospital with any evidence of a CHF decompensation. She does have left ventricular systolic dysfunction but does not appear to be in a state of decompensation. I would agree with holding her DEBORAH-inhibitor while she was hypotensive with gram-negative sepsis. For the time being I would continue her aspirin and beta-blockers well as her statin which are already ordered by the hospitalist. It sounds like she is going to be in the hospital for several more days are receiving IV antibiotics according to the Infectious Disease senior solutions consultant recommendations. We will follow her with you while she is in the hospital and determine if a and when it is reasonable to resume her lisinopril. Following discharge from [facility] she plans to travel back to [place] for follow-up with her established physicians. In addition to cardiac follow-up it appears that further evaluation of hepatic and renal mass is will be in order. Jag Moss MD [facility] History of Present Illness History of Present Illness Consult date/time: 03/12/21 12:11 Consult reason: congestive heart failure Reason For Visit: Hyperglycemia, Dehydration Narrative: This is a 75-year-old woman that I am seeing at the request of hospitalist the stated reason for the consult is hypotension and congestive heart failure. The patient has a history of heart disease and receives her care out [facility] where she resides so none of the details of her previous care are available to me she is a reasonable but incomplete historian. The patient was hospitalized here couple of days ago with weakness fever and significant hyperglycemia. She is here in this area visiting family and attending a [facility] service for her sister who last year of castro virus. While she is here she became ill and was hospitalized after being seen in the emergency room. She had a temperature of a 101? on admission and was also hypotensive are least soft blood pressure off and on. Her blood cultures have demonstrated bacteremia with Klebsiella pneumonia and antibiotics for that have been recommended. She is not reporting any obvious cardiac symptoms such as chest pain shortness of breath orthopnea or PND. Her chest x-ray shows some enlargement of the cardiac silhouette but no other findings compatible with decompensated heart failure. An echocardiogram was done yesterday and interpreted by my partner as showing left ventricular systolic dysfunction with an ejection fraction of about 35%. There were no other significant findings. In this setting I am seeing her in consultation. Her medical regimen normally consists of aspirin, clopidogrel, atorvastatin lisinopril on a modest dose of metoprolol. Presumably because of the hypotension her lisinopril is on hold. Her vital signs are stable today she is seated in her chair eating her lunch visiting her and watching television when I came in the room to see her. She reports a history of coronary artery disease dating back to about 20-25 years ago when she suffered a myocardial infarction. She can't really tell me any of the details of the evaluation and treatment that occurred at that time but she was treated medically with she did not remember having any percutaneous revascularization procedures and she otherwise did well after that on standard medical therapy. She states that she did well until about 3 years ago when her hhas out of routine was doing a follow-up stress test and there were some concerning findings. She was brought back to the lab head for evaluation of this and describe
[2021-03-12 12:28] LABS: Glucose Point of Care 343 mg/dl (65-105)
--- NOTE | 2021-03-12 12:41 | CONS_ITS ---
DATE OF CONSULTATION: 03/12/2021 REASON FOR CONSULTATION: Klebsiella bacteremia. HISTORY OF PRESENT ILLNESS: A 75-year-old female who has had a left total knee arthroplasty in the distant past, some 10 years ago without any recent pain or discomfort. She had no postop wound infections to her knowledge. She has no other prosthetic implants. She apparently has known of abnormalities in her liver that have not been biopsied nor firmly diagnosed. She traveled here for a memorial service from her home in [place] and presented to the hospital here on the evening of the with decreased level of consciousness, acute onset, also generalized weakness of several days duration. No fever, chills, or sweats. She is on no immunosuppressants at home. No abdominal pain. She has chronic back pain, not worse recently. No cough, dyspnea, dysuria, other voiding complaints, knee pain, diarrhea, nausea, or vomiting. She has been started on ceftriaxone. Blood cultures positive and consultation requested. She has had no previous bloodstream infections she is aware of. ALLERGIES: PENICILLIN CAUSED UNKNOWN REACTION IN THE DISTANT PAST. ALSO LATEX. SHE HAS TOLERATED CEPHALOSPORIN. HABITS: No tobacco. No alcohol to excess. She is an ex-smoker, having quit several years ago. PRESENT MEDICATIONS: No immunosuppressants. PAST MEDICAL HISTORY: In addition to the above, diabetes mellitus, CAD, CABG, hypertension, and hyperlipidemia. REVIEW OF SYSTEMS: Distant past cholecystectomy in the 1970s. 14-point review otherwise negative. FAMILY HISTORY: Not pertinent to her present illness. SOCIAL HISTORY: She is . No family at the bedside currently. Lives in [place], [place]. PHYSICAL EXAMINATION: GENERAL: Elderly female who appears her actual age, in no acute distress. VITAL SIGNS: 38.8 on arrival, since afebrile. 76, 20, 136/62, 93%. SKIN: Warm and dry. No rashes. She has expected surgical scars without evidence of infection. NECK: She has no cervical adenopathy. No masses, thyromegaly or meningismus. EENT: She has mild icterus over the left sclera, although no jaundice. The pupils are equal, round, and reactive to light. The oropharynx, oral mucosa normal. LUNGS: Clear to auscultation and percussion with excellent air entry. BACK: No CVAT. No spinal tenderness. No deformities. CARDIAC: Regular rate and rhythm. No murmur, gallop, or rub. Peripheral pulses are 2+ and equal. ABDOMEN: Obese. Liver is not enlarged by percussion or palpation. Nondistended. Normal bowel sounds. No bruits. No masses and she also has no splenomegaly nor is the urinary bladder palpable. EXTREMITIES: No clubbing, cyanosis, or edema. No venous varicosities. No skin breakdown. She has scattered ecchymoses consistent with phlebotomy. NEUROLOGIC: Awake, alert, oriented, appropriate. LABORATORY DATA: Blood cultures 2/2 sets, Klebsiella pneumoniae, which was susceptible to all except ampicillin. White count on arrival was 8, now 11.3, hemoglobin 10.1, platelets are 213, hemoglobin is down a point and half. No differential done today; earlier showed a minimal left shift. She has hyponatremia at 136, BUN 57, creatinine 1.6, similar to previous values. Glucose was 613 on arrival, now 210, A1c 12.8%, alkaline phosphatase 128. CRP 19. BNP 3050. Albumin 3.0. Transaminases normal. Lipase was 367. Urinalysis, minor abnormalities not suggestive of infection. Coronavirus assay and influenza screen both nonreactive. RADIOLOGY: Chest x-ray, no active disease. Abdomen pelvic CT, two liver masses 2.5 cm maximum diameter, also bilateral kidney masses, same size. No pathologic adenopathy. No ascites. Old fracture, left inferior pubic ramus, burst fracture L1, absent gallbladder,
[2021-03-12 17:12] LABS: Glucose Point of Care 206 mg/dl (65-105)
[2021-03-12 20:49] LABS: Glucose Point of Care 257 mg/dl (65-105)
[2021-03-12] MEDS: INSULIN GLARGINE (*BKC) 100 UNITS/ML 38 UNITS SUB-Q (21:46)
[2021-03-13] VITALS (10 sets, daily range): BP systolic 129–146; BP diastolic 51–66; PULSE 66–89; RESP 18–20; TEMP 36.3–36.9; O2SAT 96–100
[2021-03-13 05:26] LABS: Basophils Percent Auto 0.4 % (0.2-1.2); Eosinophils Absolute Auto 0.1 K/mm3 (0-0.3); Hemoglobin 10.9 g/dL (12.0-15.0); Immature Granulocyte Absolute 0.11 K/mm3 (0.00-0.031); Lymphocytes Absolute Auto 1.32 K/mm3 (0.9-3.2); Lymphocytes Percent Auto 12.5 % (18.3-44.2); Mean Corpuscular HGB Conc 29.5 g/dl (32-36); Mean Corpuscular Hemoglobin 28.3 pg (26-34); Mean Corpuscular Volume 96.1 fl (80-100); Mean Platelet Volume 12.1 fl (7.4-10.4); Monocytes Absolute Auto 0.8 K/mm3 (0.1-0.6); Monocytes Percent Auto 7.9 % (2.6-8.5); Neutrophils Absolute Auto 8.1 K/mm3 (1.3-6.7); Neutrophils Percent Auto 77.2 % (45.5-73.1); Platelet Count Result 236 k/mm3 (150-375); Red Blood Count 3.85 M/mm3 (4.2-5.4); Red Cell Distribution Width 14.9 % (11.5-14.5); White Blood Count 10.6 K/mm3 (4.5-10.0)
[2021-03-13 05:48] LABS: Alanine Aminotransferase 29 U/L (4-35); Albumin Level 3.5 g/dL (3.5-5.1); Alkaline Phosphatase 137 U/L (38-126); Anion Gap 8 mmol/L (8-16); Aspartate Amino Transferase 29 U/L (14-36); Bilirubin,Total 0.4 mg/dL (0.2-1.3); Blood Urea Nitrogen 47 mg/dL (7-17); CRP 7.6 mg/dL (<1.0); Calcium 8.8 mg/dL (8.4-10.2); Carbon Dioxide 23 mmol/L (22-30); Chloride 109 mmol/L (98-107); Estimated CRCL calculation 37 ml/min; Estimated Glomerular Filt Rate 44; Glucose 225 mg/dL (65-110); Potassium 4.3 mmol/L (3.4-5.0); Sodium 140 mmol/L (137-145)
[2021-03-13] MEDS: LEVOTHYROXINE SODIUM 112 MCG TABLET PO (06:53)
[2021-03-13 09:04] LABS: Glucose Point of Care 246 mg/dl (65-105)
[2021-03-13] MEDS: OMEGA 3 POLYUNSAT FATTY ACIDS 1 GM CAP 2 GM PO ×2 (09:25→16:47)
[2021-03-13] MEDS: ENOXAPARIN 40 MG/0.4 ML SYRINGE SUB-Q (09:25)
[2021-03-13] MEDS: ASPIRIN 81 MG ENTERIC TABLET PO (09:25)
[2021-03-13] MEDS: PREGABALIN (*CRX) 75 MG CAPSULE 150 MG PO ×2 (09:25→16:46)
[2021-03-13] MEDS: CLOPIDOGREL BISULFATE 75 MG TABLET PO (09:25)
[2021-03-13] MEDS: allopurinoL 100 MG TABLET PO (09:26)
[2021-03-13] MEDS: COLCHICINE 0.6 MG TABLET PO (09:26)
[2021-03-13] MEDS: GLIMEPIRIDE 2 MG TABLET PO (09:26)
[2021-03-13] MEDS: ATORVASTATIN 40 MG TABLET 80 MG PO (09:26)
[2021-03-13] MEDS: INSULIN ASPART (*BKC) 100 UNITS/ML 6 UNITS SUB-Q ×3 (09:27→18:28)
[2021-03-13] MEDS: METOPROLOL SUCCINATE EXT REL 25 MG TABCR PO (09:27)
[2021-03-13] MEDS: INSULIN ASPART (*BKC) 100 UNITS/ML SUB-Q ×2 (09:28→13:25)
--- NOTE | 2021-03-13 11:28 | PC.NURSE ---
This patient, Shirin Antonio, was transferred to [ [id number] ] on 03/13/21 at 1059. Personal belongings sent with patient. Report given to [ GEOVANNA Hickey. ]. Appropriate documentation sent with patient.
--- NOTE | 2021-03-13 11:34 | PM.PNCARD ---
Progress Note: A&P Assessment and Plan (1) Hypotension: Code(s): I95.9 - Hypotension, unspecified Status: Acute Assessment and Plan: Resolved holding lisinopril. He is stable today may resume low-dose 5 mg tomorrow. Hold off on hydrochlorothiazide of possible for now. Resume furosemide as volume status and BP permit. (2) Cardiomyopathy: Code(s): I42.9 - Cardiomyopathy, unspecified Status: Acute Assessment and Plan: Unclear if new diagnosis although suspect by patient reference may be chronic. Patient is unsure the recalls being told by her vascular specialists that her heart is not in good shape. She is unaware of for the particulars and cannot specify what type of surgery she had related to her sternotomy. Records not available at present. Patient claims return back home to [place] in follow-up with her vascular specialists as soon as possible. Patient is stable from a cardiac perspective and not in decompensated heart failure. Will see patient as needed. No further invasive testing at this time. (3) Bacteremia due to Klebsiella pneumoniae: Code(s): R78.81 - Bacteremia; B96.1 - Klebsiella pneumoniae [K. pneumoniae] as the cause of diseases classified elsewhere Status: Acute Assessment and Plan: Per primary service and Infectious Disease. She continues to receive IV antibiotics. (4) BERRY (acute kidney injury): Code(s): N17.9 - Acute kidney failure, unspecified Status: Acute Assessment and Plan: Monitor renal function closely. Fairly stable today. Creatinine 1.2. Subjective Date/time seen: Date of service: 03/13/21 11:34 Follow-up for cardiomyopathy Patient states she is feeling better overall. Notes some vague discomfort in her chest and feels a bit more short of breath just lying or sitting in bed. Shortness of breath and chest discomfort completely resolved with activity interestingly. Patient states she feels fine otherwise and has no other new concerns. No dizziness, lightheadedness or palpitations. It new issues overnight. Blood pressure improved holding lisinopril. Review of Systems Constitutional: Constitutional: Reports fatigue and Reports lethargy Eyes: Eyes: Reports no additional eye complaints ENT: Reports system reviewed and no additional complaints, except as documented Cardiovascular: Cardiovascular: Reports no additional cardiovascular complaints Respiratory: Respiratory: Reports no additional respiratory complaints Gastrointestinal: Gastrointestinal: Reports no additional gastrointestinal complaints Musculoskeletal: Musculoskeletal: Reports arthralgias Integumentary/Breasts: Skin/Breast: Reports system reviewed and no additional complaints, except as docu Neurologic: Reports system reviewed and no additional complaints, except as documented Endocrine: Endocrine: Reports no additional endocrine complaints and Reports fatigue Hematologic/Lymphatic: Hematologic/Lymphatic: Reports no additional hematologic/lymphatic complaints Allergic/Immunologic: Allergic/Immunologic: Reports no additional allergic/immunologic complaints Exam Const: General: comfortable and no acute distress Other: Pleasant overweight white female appearing about her stated age eating lunch watching television visiting with her . HENMT: Mouth: Yes moist mucous membranes Eyes: Sclera: sclerae normal Pupils: Equal, round and reactive pupils present Neck: Neck: supple and no JVD Resp: Effort & Inspection: normal respiratory effort Auscultation: clear to auscultation bilaterally Other: Breath sounds are somewhat distant but otherwise clear no rales no rhonchi no wheezing Cardio: Rate: regular rate Rhythm: regular rhythm Other: patient has a very soft systolic murmur that does not radiate from the left sternal border no diastolic murmur no gallop Intact sternotomy GI: Auscultation: normal bowel sounds Neuro: Cranial nerves: Yes Equal, round an
--- NOTE | 2021-03-13 11:38 | PM.IMPN ---
Progress Note: A&P Assessment and Plan (1) Bacteremia due to Klebsiella pneumoniae: Code(s): R78.81 - Bacteremia; B96.1 - Klebsiella pneumoniae [K. pneumoniae] as the cause of diseases classified elsewhere Status: Acute Assessment and Plan: Both blood cultures growing Klebsiella pneumonia - unclear source at this time. UA on admission not overly suspicious for UTI and a culture was not sent. urine culture has been sent but was obtained after antibiotics were started. Chest x-ray normal on admission but now she is slightly short of breath And repeat chest x-ray looked okay. she is not hypoxic but using oxygen for comfort. No signs of PE at this time such as hypoxia or tachycardia. CT of the abdomen on admission shows liver masses which the patient says is chronic and she sees a specialist for but cannot give me any further detail. I have contacted the primary care physician office in [place] who told me patient had an abdominal MRI in June 2020 and abnormalities of the liver were normal cysts as well as the kidneys. I did an ultrasound to assess for possible abscess but it did not see anything. They recommend MRI but the patient does have chronic kidney disease. I talked to the radiologist 03/[address] with and without contrast may also help. this was done yesterday and it shows masses that need follow-up with an MRI. I spoken to Infectious Disease, my supervising physician and the patient about this. She plans to finish IV treatment here and will take her antibiotics at discharge and travel back to [place] where she will follow-up with her primary care physician. The plan is for her to have a repeat scan after her treatment has resolved. She may need intervention for tissue assessment if she is unable to get an MRI due to kidney failure. She agrees with this plan. plan for 3 more days of IV antibiotics and then discharge. (2) Hypotension: Code(s): I95.9 - Hypotension, unspecified Status: Acute Assessment and Plan: Resolved Patient became hypotensive 03/11 and required IV bolus of normal saline - her blood pressure has improved as well as her clinical course today - fluids have been stopped as she appears euvolemic and does have systolic CHF - at the time that she was hypotensive, her antibiotics were broadened to imipenem but has been since transition to ceftriaxone - could be due to the Lasix given 03/10/2021, cannot rule out infection as an etiology as well - monitor (3) Systolic CHF: Code(s): I50.20 - Unspecified systolic (congestive) heart failure Status: Acute Assessment and Plan: Patient's troponin was slightly elevated on admission but no ACS suspected - Echo done which showed hypokinesis and a decreased EF. Patient has no known history of CHF to her knowledge - she does have an extensive history of cardiac disease in 2018 which she cannot share many details about. She had a hx of [place] about 20 years ago with no intervention. In 2018 she had a cardiac cath which sounds like it had a complication and she ended up in the OR and getting stents in the leg. At that time she says she had an open heart surgery and was in the hospital for 3 months. No hx of CHF. She does not recall these events very well. - cardiology has been consulted and recommends following up with her primary [facility] Inserter back in [place] and continuing medications. (4) Acute hyperglycemia: Code(s): R73.9 - Hyperglycemia, unspecified Status: Acute Assessment and Plan: Glucose as high as 613 but now 246 - Continue mealtime insulin of 6units of scheduled insulin with SSI -continue Lantus (increase dose slightly) -continue home glimepiride -A1c 12.8 but PCP confirms that her A1c was 10.5 in January (5) Dehydration: Code(s): E86.0 - Dehydration Status: Acute Assessment and Plan: Resolved (6) Generalized weakness: Code(s):
[2021-03-13 12:39] LABS: Glucose Point of Care 277 mg/dl (65-105)
[2021-03-13] MEDS: ACETAMINOPHEN 325 MG TABLET 650 MG PO (16:50)
[2021-03-13 18:38] LABS: Glucose Point of Care 165 mg/dl (65-105)
[2021-03-13] MEDS: INSULIN GLARGINE (*BKC) 100 UNITS/ML 42 UNITS SUB-Q (21:33)
[2021-03-13 22:33] LABS: Glucose Point of Care 265 mg/dl (65-105)
[2021-03-14] VITALS (14 sets, daily range): BP systolic 82–150; BP diastolic 42–76; PULSE 55–133; RESP 14–24; TEMP 36.3–38.6; O2SAT 96–100
[2021-03-14] MEDS: LEVOTHYROXINE SODIUM 112 MCG TABLET PO (05:57)
[2021-03-14 06:10] LABS: Hematocrit 34.9 % (37.0-47.0); Hemoglobin 10.9 g/dL (12.0-15.0); Mean Corpuscular HGB Conc 31.2 g/dl (32-36); Mean Corpuscular Hemoglobin 29.1 pg (26-34); Mean Corpuscular Volume 93.3 fl (80-100); Mean Platelet Volume 11.7 fl (7.4-10.4); Platelet Count Result 251 k/mm3 (150-375); Red Blood Count 3.74 M/mm3 (4.2-5.4); Red Cell Distribution Width 14.7 % (11.5-14.5); White Blood Count 7.5 K/mm3 (4.5-10.0)
[2021-03-14 06:28] LABS: Anion Gap 7 mmol/L (8-16); Blood Urea Nitrogen 30 mg/dL (7-17); Calcium 8.9 mg/dL (8.4-10.2); Carbon Dioxide 25 mmol/L (22-30); Chloride 110 mmol/L (98-107); Estimated CRCL calculation 40 ml/min; Estimated Glomerular Filt Rate 49; Glucose 152 mg/dL (65-110); Potassium 4.3 mmol/L (3.4-5.0); Sodium 142 mmol/L (137-145)
[2021-03-14] MEDS: ACETAMINOPHEN 325 MG TABLET 650 MG PO ×2 (08:03→13:47)
--- NOTE | 2021-03-14 08:38 | ECG_ITS ---
Measurements Intervals [place] Rate: 117 P: [place]: 0 QRS: -71 QRSD: 144 T: 123 QT: 374 QTc: 523 Interpretive Statements ATRIAL FIBRILLATION WITH RAPID VENTRICULAR RESPONSE VENTRICULAR PREMATURE COMPLEXES RIGHT BUNDLE BRANCH BLOCK LEFT ANTERIOR FASCICULAR BLOCK BASELINE WANDER- II, III, AVF ABNORMAL ECG Electronically Signed On 03-14-2021 16:27:07 CDT by Jair Kellogg D.O.
[2021-03-14 08:41] LABS: Glucose Point of Care 292 mg/dl (65-105)
[2021-03-14] MEDS: METOPROLOL SUCCINATE EXT REL 25 MG TABCR PO (08:45)
[2021-03-14] MEDS: PREGABALIN (*CRX) 75 MG CAPSULE 150 MG PO (08:45)
[2021-03-14] MEDS: COLCHICINE 0.6 MG TABLET PO (08:45)
[2021-03-14] MEDS: ATORVASTATIN 40 MG TABLET 80 MG PO (08:45)
[2021-03-14] MEDS: ASPIRIN 81 MG ENTERIC TABLET PO (08:45)
[2021-03-14] MEDS: OMEGA 3 POLYUNSAT FATTY ACIDS 1 GM CAP 2 GM PO ×2 (08:45→18:06)
[2021-03-14] MEDS: allopurinoL 100 MG TABLET PO (08:45)
[2021-03-14] MEDS: GLIMEPIRIDE 2 MG TABLET PO (08:45)
[2021-03-14] MEDS: CLOPIDOGREL BISULFATE 75 MG TABLET PO (08:45)
[2021-03-14] MEDS: ENOXAPARIN 40 MG/0.4 ML SYRINGE SUB-Q (08:46)
[2021-03-14] MEDS: INSULIN ASPART (*BKC) 100 UNITS/ML 6 UNITS SUB-Q ×3 (08:46→18:46)
[2021-03-14] MEDS: INSULIN ASPART (*BKC) 100 UNITS/ML SUB-Q ×3 (08:47→18:46)
--- NOTE | 2021-03-14 08:50 | PCPTNOTE ---
Attempted therapy session, per RN hold due to Pt spiking a fever last night. Will attempt again.
[2021-03-14 10:38] LABS: Lactic Acid Reflex 2.7 mmol/L (0.7-2.1)
[2021-03-14] MEDS: SODIUM CHLORIDE 0.9% IV 1,000 ML 100 ML IV CONT ×2 (10:38→17:10)
[2021-03-14] MEDS: lisinopriL 5 MG TABLET PO (10:38)
[2021-03-14] MEDS: METOPROLOL TARTRATE INJ 5 MG/5 ML VIAL IV PUSH (10:38)
[2021-03-14 10:41] LABS: CRP 5.2 mg/dL (<1.0); Magnesium 1.6 mg/dL (1.6-2.3)
--- NOTE | 2021-03-14 10:41 | PM.IMPN ---
Progress Note: A&P Assessment and Plan (1) Bacteremia due to Klebsiella pneumoniae: Code(s): R78.81 - Bacteremia; B96.1 - Klebsiella pneumoniae [K. pneumoniae] as the cause of diseases classified elsewhere Status: Acute Assessment and Plan: Both blood cultures growing Klebsiella pneumonia -Pt has worsened today with fevers, chills, tachycardia and elevated lactic acid -will start fluids, broaden abx, and obtain abdominal MRI -bp stable at this time but will monitor vitals -obtain new blood cultures -urine culture growing 10,000-49,000 entercoccus with no signs of UTI on UA and no symptoms -await further recommendations from ID -may consider VALERIO if pt continues to have fevers and bacteremia (2) Hypotension: Code(s): I95.9 - Hypotension, unspecified Status: Acute Assessment and Plan: Resolved Patient became hypotensive 03/11 and required IV bolus of normal saline - her blood pressure has improved but will monitor closely since pt is looking worse today (3) Systolic CHF: Code(s): I50.20 - Unspecified systolic (congestive) heart failure Status: Acute Assessment and Plan: Patient's troponin was slightly elevated on admission but no ACS suspected - Echo done which showed hypokinesis and a decreased EF. Patient has no known history of CHF to her knowledge - she does have an extensive history of cardiac disease in 2018 which she cannot share many details about. She had a hx of [place] about 20 years ago with no intervention. In 2018 she had a cardiac cath which sounds like it had a complication and she ended up in the OR and getting stents in the leg. At that time she says she had an open heart surgery and was in the hospital for 3 months. No hx of CHF. She does not recall these events very well. no records yet -EKG changes as above with no CP. Will try and control her rate to help with the strain. She is not symptomatic at this time but will monitor on tele. Cardiology notified. Tachycardia likely due to sepsis/infection. (4) Acute hyperglycemia: Code(s): R73.9 - Hyperglycemia, unspecified Status: Acute Assessment and Plan: Glucose as high as 613 but now 292 - Continue mealtime insulin of 6units of scheduled insulin with SSI -continue Lantus -continue home glimepiride -A1c 12.8 but PCP confirms that her A1c was 10.5 in January (5) Dehydration: Code(s): E86.0 - Dehydration Status: Acute Assessment and Plan: Resolved (6) Generalized weakness: Code(s): R53.1 - Weakness Status: Acute Assessment and Plan: Improving - continue PT and OT (7) Congestive heart failure: Code(s): I50.9 - Heart failure, unspecified Status: Acute Assessment and Plan: as above (8) BERRY (acute kidney injury): Code(s): N17.9 - Acute kidney failure, unspecified Status: Acute Assessment and Plan: Cr 1.1 and pt states she has some hx of kidney dz - continue to monitor (9) Elevated troponin: Code(s): R77.8 - Other specified abnormalities of plasma proteins Status: Acute Assessment and Plan: as above (10) Leg pain, left: Code(s): M79.605 - Pain in left leg Status: Acute Assessment and Plan: No DVT on u/s -improving Subjective Date/time seen: 03/14/21 10:41 Interval history: Pt is a 75-year-old female here for bacteremia. Patient was seen today and is feeling terrible. she said yesterday was a really good day and today she feels pretty bad. It is not as bad as when she came in but close. she started to have shaking chills and fevers this morning which she has not had an days. She has no dysuria, chest pain, shortness of breath, nausea, vomiting, diarrhea or constipation. She feels like her heart is racing but has absolutely no chest pain, jaw pain or arm pain. Exam Narrative: General: Well developed well nour
--- NOTE | 2021-03-14 11:02 | PCOTNOTE ---
Attempted to see pt 2x this AM, however, due to elevated heart rate and fever, pt is not appropriate to be seen today for OT tx per RN. Will continue per POC duration and frequency tomorrow.
--- NOTE | 2021-03-14 11:29 | PCPTNOTE ---
Attempted therapy session due to elevated heart rate and fever, pt is not appropriate to be seen today for PT tx per RN. Continue per POC 03/15/2021.
[2021-03-14 13:24] LABS: Reflex Lactic Acid Yes or No Add Lactic
[2021-03-14 13:29] LABS: Glucose Point of Care 282 mg/dl (65-105)
--- NOTE | 2021-03-14 13:35 | PM.PNCARD ---
Progress Note: A&P Assessment and Plan (1) Atrial fibrillation with rapid ventricular response: Code(s): I48.91 - Unspecified atrial fibrillation Status: Acute Assessment and Plan: New onset AFib with RVR earlier this AM, symptomatic with palpitations, shortness of breath. Likely triggered due to underlying infection, fevers/chills this a.m. with concern for underlying infection/abscess. Cardiac history contributing although details remain less clear. Discussed etiology, management Of atrial fibrillation including rate versus rhythm control strategy, medications, and or cardioversion if necessary to restore sinus rhythm. At length, we discussed indications for treatment with anticoagulation to reduce risk for embolic stroke, and relative associated bleeding risk. CHADS2-Vasc score 5-6 Continue IV metoprolol 5 mg IV every 6 hours as needed for heart rate control. Continue oral metoprolol Increase to 50 mg daily as BP permits. Given known time of onset of AFib may consider transient use of amiodarone if necessary or if refractory heart rate with intolerable symptoms. Change to systemic anticoagulation 1 milligram/kilogram subcutaneous q.12 hour from DVT dosing. Hold aspirin, continue clopidogrel for now. Heart rate control strategy at this time. Patient currently tolerating reasonably well. Continue telemetry. Monitor electrolytes closely. Spent 32 minutes in the care of this patient at bedside, counseling, chart review, provider discussions, documentation, and medical decision making. (2) Cardiomyopathy: Code(s): I42.9 - Cardiomyopathy, unspecified Status: Acute Assessment and Plan: Unclear if new diagnosis although suspect by patient reference may be chronic. Patient is unsure the recalls being told by her treater helper that her heart is not in good shape. She is unaware of for the particulars and cannot specify what type of surgery she had related to her sternotomy. Records not available at present. Patient claims return back home to [place] in follow-up with her treater helper as soon as possible. (3) Hypotension: Code(s): I95.9 - Hypotension, unspecified Status: Acute Assessment and Plan: Resolved. Monitor closely. (4) Bacteremia due to Klebsiella pneumoniae: Code(s): R78.81 - Bacteremia; B96.1 - Klebsiella pneumoniae [K. pneumoniae] as the cause of diseases classified elsewhere Status: Acute Assessment and Plan: Patient afebrile with chills this morning. Additional workup per primary service, planned MRI to exclude abscess. She continues to receive IV antibiotics. (5) BERRY (acute kidney injury): Code(s): N17.9 - Acute kidney failure, unspecified Status: Acute Assessment and Plan: Monitor renal function closely. Fairly stable today and improved, Creatinine 1.1. Subjective Date/time seen: Date of service:03/14/21 13:35 Follow-up for cardiomyopathy now with new onset atrial fibrillation, shortness of breath patient was feeling much better yesterday and woke up this morning around 5:30 a.m. feeling well and then had chills asking for an extra blanket and then became very weak, tired with palpitations, shortness of breath. Patient was febrile 38.6C. heart rate 120 to 130s in atrial fibrillation, telemetry ordered given IV metoprolol 5 mg x 1. IV magnesium magnesium level 1.6 lactic acid 2.7. BP stable. Patient is feeling better but still notes minimal palpitations, shortness of breath very mild no discomfort. No longer chilled. Review of Systems Review of Systems: All systems reviewed & are unremarkable except as noted in HPI and below Constitutional: Constitutional: Reports as per HPI, Reports chills, Reports fatigue, Reports lethargy and Reports weakness Eyes: Eyes: Reports as per HPI and Reports no additional eye complaints ENT: Reports system reviewed and no additional complaints, except as document
[2021-03-14] MEDS: MAGNESIUM SULF 2 GM/WATER 50ML 2 GM/50 ML BAG IVPB (13:44)
[2021-03-14 13:52] LABS: Lactic Acid 1.6 mmol/L (0.7-2.1)
--- NOTE | 2021-03-14 15:09 | ECG_ITS ---
Measurements Intervals [place] Rate: 49 P: -9 AR: 140 QRS: -55 QRSD: 149 T: 214 QT: 570 QTc: 517 Interpretive Statements SINUS BRADYCARDIA WITH MARKED RHYTHM IRREGULARITY, POSSIBLE NON-CONDUCTED PAC, SA BLOCK, AV BLOCK, OR SINUS PAUSE RIGHT BUNDLE BRANCH BLOCK LEFT ANTERIOR FASCICULAR BLOCK LEFT VENTRICULAR HYPERTROPHY AND ST-T CHANGE ST-T WAVE ABNORMALITY IN ANTEROLAT/HIGH LAT LEADS- CONSIDER ISCHEMIA BASELINE ARTIFACT- I, III, AVR, AVL, AVF, V1-V6 ABNORMAL ECG Electronically Signed On 03-14-2021 16:38:55 CDT by Jair Kellogg D.O.
[2021-03-14] MEDS: SODIUM CHLORIDE 0.9% IV 500 ML IV CONT (15:35)
[2021-03-14 17:10] LABS: Magnesium 2.5 mg/dL (1.6-2.3)
--- NOTE | 2021-03-14 17:17 | PC.NURSE ---
This patient, Shirin Antonio, was received from [[facility] ] on 03/14/21 at 1700. Patient/family oriented to unit policies and routines
[2021-03-14 17:19] LABS: Glucose Point of Care 296 mg/dl (65-105)
[2021-03-14 17:38] LABS: Troponin I 0.448 ng/mL (0.000-0.034)
[2021-03-14 20:04] LABS: Troponin I 0.433 ng/mL (0.000-0.034)
[2021-03-14] MEDS: INSULIN GLARGINE (*BKC) 100 UNITS/ML 42 UNITS SUB-Q (20:20)
[2021-03-14 20:28] LABS: Glucose Point of Care 300 mg/dl (65-105)
[2021-03-14 23:12] LABS: Troponin I 0.395 ng/mL (0.000-0.034)
[2021-03-15] VITALS (13 sets, daily range): BP systolic 112–144; BP diastolic 52–89; PULSE 62–89; RESP 18–20; TEMP 36–36.9; O2SAT 96–99
[2021-03-15 04:57] LABS: Basophils Absolute Auto 0.1 K/mm3 (0.0-0.1); Basophils Percent Auto 0.7 % (0.2-1.2); Eosinophils Absolute Auto 0.2 K/mm3 (0-0.3); Eosinophils Percent Auto 2.9 % (0-4.4); Hematocrit 34.3 % (37.0-47.0); Hemoglobin 10.4 g/dL (12.0-15.0); Immature Granulocyte Absolute 0.21 K/mm3 (0.00-0.031); Lymphocytes Absolute Auto 2.34 K/mm3 (0.9-3.2); Lymphocytes Percent Auto 33.9 % (18.3-44.2); Mean Corpuscular HGB Conc 30.3 g/dl (32-36); Mean Corpuscular Hemoglobin 28.8 pg (26-34); Monocytes Absolute Auto 0.2 K/mm3 (0.1-0.6); Monocytes Percent Auto 2.6 % (2.6-8.5); Neutrophils Absolute Auto 3.9 K/mm3 (1.3-6.7); Neutrophils Percent Auto 56.9 % (45.5-73.1); Platelet Count Result 284 k/mm3 (150-375); Red Blood Count 3.61 M/mm3 (4.2-5.4); Red Cell Distribution Width 14.9 % (11.5-14.5); White Blood Count 6.9 K/mm3 (4.5-10.0)
[2021-03-15 05:28] LABS: Alanine Aminotransferase 28 U/L (4-35); Albumin Level 3.2 g/dL (3.5-5.1); Alkaline Phosphatase 121 U/L (38-126); Anion Gap 14 mmol/L (8-16); Aspartate Amino Transferase 40 U/L (14-36); Bilirubin,Total 0.6 mg/dL (0.2-1.3); Blood Urea Nitrogen 23 mg/dL (7-17); CRP 7.1 mg/dL (<1.0); Calcium 8.8 mg/dL (8.4-10.2); Carbon Dioxide 18 mmol/L (22-30); Chloride 110 mmol/L (98-107); Estimated CRCL calculation 40 ml/min; Estimated Glomerular Filt Rate 49; Glucose 206 mg/dL (65-110); Magnesium 2.2 mg/dL (1.6-2.3); Potassium 4.2 mmol/L (3.4-5.0); Sodium 142 mmol/L (137-145)
[2021-03-15] MEDS: LEVOTHYROXINE SODIUM 112 MCG TABLET PO (05:47)
[2021-03-15] MEDS: SODIUM CHLORIDE 0.9% IV 1,000 ML 100 ML IV CONT ×2 (05:47→23:09)
--- NOTE | 2021-03-15 07:19 | P.CDI_ITS ---
CDI Query Clarification Request -Bacteremia due to Klebsiella pneumoniae documented - Pt has worsened today with fevers, chills, tachycardia and elevated lactic acid documented -Hypotension and acute kidney injury documented. SOFA 2 - Klebsiella pneumoniae bacteremia, hepatobiliary source and Elevated alkaline phosphatase and lipase suggesting pathology in the liver and not benign cyst documented by Dr Ricci -Bacteremia is a nonspecific laboratory finding of bacteria in the blood. Please clarify if there is possibly a more specific diagnosis for above findings: * Septicemia- systemic illness * Bacteremia- lab finding with no systemic illness * Other * Unable to determine
[2021-03-15 09:09] LABS: Glucose Point of Care 221 mg/dl (65-105)
[2021-03-15] MEDS: INSULIN ASPART (*BKC) 100 UNITS/ML 6 UNITS SUB-Q (09:10)
[2021-03-15] MEDS: INSULIN ASPART (*BKC) 100 UNITS/ML SUB-Q (09:11)
[2021-03-15] MEDS: ATORVASTATIN 40 MG TABLET 80 MG PO (09:12)
[2021-03-15] MEDS: COLCHICINE 0.6 MG TABLET PO (09:13)
[2021-03-15] MEDS: GLIMEPIRIDE 2 MG TABLET PO (09:13)
[2021-03-15] MEDS: OMEGA 3 POLYUNSAT FATTY ACIDS 1 GM CAP 2 GM PO ×2 (09:13→17:34)
[2021-03-15] MEDS: allopurinoL 100 MG TABLET PO (09:14)
[2021-03-15] MEDS: PREGABALIN (*CRX) 75 MG CAPSULE 150 MG PO ×2 (09:16→17:35)
--- NOTE | 2021-03-15 09:52 | PM.IMPN ---
Progress Note: A&P Assessment and Plan (1) Bacteremia due to Klebsiella pneumoniae: Code(s): R78.81 - Bacteremia; B96.1 - Klebsiella pneumoniae [K. pneumoniae] as the cause of diseases classified elsewhere Status: Acute Assessment and Plan: Both blood cultures growing Klebsiella pneumonia -Pt has worsened 03/14/21 with fevers, chills, tachycardia and elevated lactic acid. No further fevers overnight. -Continue fluids, Imipenem and await abdominal MRI (awaiting on records) -bp stable at this time -New blood cultures pending -urine culture growing 10,000-49,000 entercoccus with no signs of UTI on UA and no symptoms -await further recommendations from ID, I have a page out to him -may consider VALERIO if pt continues to have fevers and bacteremia (2) Hypotension: Code(s): I95.9 - Hypotension, unspecified Status: Acute Assessment and Plan: Resolved Patient became hypotensive 03/11 and 03/14 and required IV bolus of normal saline - her blood pressure has improved but will monitor closely (3) Systolic CHF: Code(s): I50.20 - Unspecified systolic (congestive) heart failure Status: Acute Assessment and Plan: Patient's troponin was slightly elevated on admission but no ACS suspected - Echo done which showed hypokinesis and a decreased EF. Patient has no known history of CHF to her knowledge - she does have an extensive history of cardiac disease in 2018 which she cannot share many details about. She had a hx of [place] about 20 years ago with no intervention. In 2018 she had a cardiac cath which sounds like it had a complication and she ended up in the OR and getting stents in the leg. At that time she says she had an open heart surgery and was in the hospital for 3 months. No hx of CHF. She does not recall these events very well. no records yet -pt had a 10 second pause 03/14/21 and ventricular rhythm could be from converting from afib to NSR. (4) Acute hyperglycemia: Code(s): R73.9 - Hyperglycemia, unspecified Status: Acute Assessment and Plan: Glucose as high as 613 but now 221 - Continue mealtime insulin (increase to 8 units of scheduled insulin) with SSI -continue Lantus -continue home glimepiride -A1c 12.8 but PCP confirms that her A1c was 10.5 in January (5) Dehydration: Code(s): E86.0 - Dehydration Status: Acute Assessment and Plan: Resolved (6) Generalized weakness: Code(s): R53.1 - Weakness Status: Acute Assessment and Plan: Improving - continue PT and OT (7) Congestive heart failure: Code(s): I50.9 - Heart failure, unspecified Status: Acute Assessment and Plan: as above (8) BERRY (acute kidney injury): Code(s): N17.9 - Acute kidney failure, unspecified Status: Acute Assessment and Plan: Cr 1.1 and pt states she has some hx of kidney dz - continue to monitor (9) Elevated troponin: Code(s): R77.8 - Other specified abnormalities of plasma proteins Status: Acute Assessment and Plan: as above (10) Leg pain, left: Code(s): M79.605 - Pain in left leg Status: Acute Assessment and Plan: No DVT on u/s -improving (11) Septicemia: Code(s): A41.9 - Sepsis, unspecified organism Status: Acute Assessment and Plan: As above, pt has bacteremia and signs of sepsis with fevers and tachycardia (12) Sinus pause: Code(s): I45.5 - Other specified heart block Status: Acute Assessment and Plan: As above, pt had a 10s pause 03/14/21 at 1443. She went from afib to what appears to be a junctional rhythm before returning to NSR and was symptomatic. No further pauses overnight. metoprolol on hold. Will add back lovenox. Could be due to SSS or converting from afib. Spoke with cardiology. Continue to monitor on tele. (13) Atrial fibrillation with rapid ventricular res
[2021-03-15 12:36] LABS: Glucose Point of Care 198 mg/dl (65-105)
[2021-03-15] MEDS: ACETAMINOPHEN 325 MG TABLET 650 MG PO (13:51)
[2021-03-15] MEDS: CLOPIDOGREL BISULFATE 75 MG TABLET PO (13:53)
[2021-03-15] MEDS: ENOXAPARIN 100 MG/ML SYRINGE 90 MG SUB-Q ×2 (13:53→20:27)
[2021-03-15] MEDS: INSULIN ASPART (*BKC) 100 UNITS/ML 8 UNITS SUB-Q ×2 (13:57→17:33)
--- NOTE | 2021-03-15 14:50 | PM.PNCARD ---
Progress Note: A&P Assessment and Plan (1) Tachycardia-bradycardia syndrome: Code(s): I49.5 - Sick sinus syndrome Status: Acute Assessment and Plan: Patient with evidence of atrial fib with rapid ventricular with 10 second pause upon conversion to sinus rhythm. Due to pause, Shakeel arrhythmias, intermittent junctional escape beta-blockers have been discontinued completely. Discussed at length with patient and at bedside possibility of pacemaker implantation if uncontrolled tachy or Shakeel arrhythmias persist. However, if persistent bacteremia and or unclear to infection we must avoid invasive procedures much as possible and in particular permanent pacemaker implantation. While a temporary transvenous pacemaker would certainly be an option not indicated at this time. Continue close clinical observation. Avoid AV ra blocking agents for now. She is on systemic anticoagulation with enoxaparin. Follow H&H closely monitor for bleeding. We discussed at length dangers associated with this type of situation and the fact that [place]. (2) Sinus pause: Code(s): I45.5 - Other specified heart block Status: Acute Assessment and Plan: Prolonged pause upon conversion of the AFib as above indicative of significant underlying conduction system disease. (3) Atrial fibrillation with rapid ventricular response: Code(s): I48.91 - Unspecified atrial fibrillation Status: Acute Assessment and Plan: See above. Maintaining sinus rhythm thus far. Recurrence quite likely avoid AV ra blocking agent if at all possible. (4) Cardiomyopathy: Code(s): I42.9 - Cardiomyopathy, unspecified Status: Acute Assessment and Plan: Unclear if new diagnosis although suspect by patient reference may be chronic. Patient is unsure the recalls being told by her fixture fabricator repairer that her heart is not in good shape. She is unaware of for the particulars and cannot specify what type of surgery she had related to her sternotomy. Records not available at present. Patient claims return back home to [place] in follow-up with her fixture fabricator repairer as soon as possible. (5) Bacteremia due to Klebsiella pneumoniae: Code(s): R78.81 - Bacteremia; B96.1 - Klebsiella pneumoniae [K. pneumoniae] as the cause of diseases classified elsewhere Status: Acute Assessment and Plan: MRI of the abdomen without abscess noted. Repeat cultures March 14, 2021 negative to date x2. She continues to receive IV antibiotics. (6) BERRY (acute kidney injury): Code(s): N17.9 - Acute kidney failure, unspecified Status: Acute Assessment and Plan: Monitor renal function closely. Fairly stable Creatinine 1.1. (7) Hypotension: Code(s): I95.9 - Hypotension, unspecified Status: Acute Assessment and Plan: Resolved. Monitor closely. Subjective Date/time seen: Date of service: 03/15/21 14:50 Follow-up for atrial flutter/fibrillation, cardiomyopathy, sepsis Yesterday afternoon patient converted from atrial flutter/fibrillation with an ensuing approximately 10 second pause with ventricular escape followed by intermittent junctional rhythm and ventral sinus rhythm. Patient was transiently hypotensive within with stabilized with IV fluids the felt quite well thereafter. Patient has had brief runs of SVT, occasional pauses, junctional escape but no evidence of high-grade AV block or pathologic pauses subsequently. Patient states she feels rather well today although tired. Denies shortness of breath, chest pain or palpitations. She just returned from MRI of the abdomen. Repeat blood cultures 03/14/21 negative x2 thus far. Review of Systems Review of Systems: All systems reviewed & are unremarkable except as noted in HPI and below Constitutional: Constitutional: Reports as per HPI, Denies chills, Reports fatigue and Reports weakness Eyes: Eyes: Reports as per HPI a
[2021-03-15 17:10] LABS: Glucose Point of Care 145 mg/dl (65-105)
[2021-03-15 20:27] LABS: Glucose Point of Care 164 mg/dl (65-105)
[2021-03-15] MEDS: INSULIN GLARGINE (*BKC) 100 UNITS/ML 42 UNITS SUB-Q (20:28)
[2021-03-16] VITALS (15 sets, daily range): BP systolic 109–154; BP diastolic 58–79; PULSE 62–95; RESP 16–24; TEMP 36.5–37.5; O2SAT 93–99
[2021-03-16] MEDS: LEVOTHYROXINE SODIUM 112 MCG TABLET PO (05:30)
[2021-03-16 05:50] LABS: Basophils Percent Auto 0.3 % (0.2-1.2); Eosinophils Absolute Auto 0.1 K/mm3 (0-0.3); Eosinophils Percent Auto 1.6 % (0-4.4); Hematocrit 30.4 % (37.0-47.0); Hemoglobin 9.3 g/dL (12.0-15.0); Immature Granulocyte Percent A 2.2 % (0-0.5); Lymphocytes Absolute Auto 1.36 K/mm3 (0.9-3.2); Lymphocytes Percent Auto 15.1 % (18.3-44.2); Mean Corpuscular HGB Conc 30.6 g/dl (32-36); Mean Corpuscular Hemoglobin 28.9 pg (26-34); Mean Corpuscular Volume 94.4 fl (80-100); Mean Platelet Volume 12.4 fl (7.4-10.4); Monocytes Absolute Auto 0.7 K/mm3 (0.1-0.6); Monocytes Percent Auto 7.8 % (2.6-8.5); Neutrophils Absolute Auto 6.6 K/mm3 (1.3-6.7); Platelet Count Result 229 k/mm3 (150-375); Red Blood Count 3.22 M/mm3 (4.2-5.4); Red Cell Distribution Width 15.2 % (11.5-14.5)
[2021-03-16 06:03] LABS: Alanine Aminotransferase 26 U/L (4-35); Albumin Level 2.7 g/dL (3.5-5.1); Alkaline Phosphatase 121 U/L (38-126); Anion Gap 6 mmol/L (8-16); Aspartate Amino Transferase 29 U/L (14-36); Bilirubin,Total 0.4 mg/dL (0.2-1.3); Blood Urea Nitrogen 15 mg/dL (7-17); CRP 7.8 mg/dL (<1.0); Calcium 8.4 mg/dL (8.4-10.2); Carbon Dioxide 21 mmol/L (22-30); Chloride 113 mmol/L (98-107); Estimated CRCL calculation 55 ml/min; Estimated Glomerular Filt Rate > 60; Glucose 108 mg/dL (65-110); Potassium 3.7 mmol/L (3.4-5.0); Sodium 140 mmol/L (137-145)
[2021-03-16 08:34] LABS: Glucose Point of Care 141 mg/dl (65-105)
[2021-03-16] MEDS: CLOPIDOGREL BISULFATE 75 MG TABLET PO (08:44)
[2021-03-16] MEDS: OMEGA 3 POLYUNSAT FATTY ACIDS 1 GM CAP 2 GM PO ×2 (08:44→18:04)
[2021-03-16] MEDS: ENOXAPARIN 100 MG/ML SYRINGE 90 MG SUB-Q ×2 (08:44→21:01)
[2021-03-16] MEDS: COLCHICINE 0.6 MG TABLET PO (08:44)
[2021-03-16] MEDS: ATORVASTATIN 40 MG TABLET 80 MG PO (08:44)
[2021-03-16] MEDS: allopurinoL 100 MG TABLET PO (08:45)
[2021-03-16] MEDS: GLIMEPIRIDE 2 MG TABLET PO (08:45)
[2021-03-16] MEDS: PREGABALIN (*CRX) 75 MG CAPSULE 150 MG PO ×2 (08:46→18:04)
[2021-03-16] MEDS: ONDANSETRON INJ 4 MG/2 ML VIAL IV PUSH (10:39)
[2021-03-16 12:05] LABS: Glucose Point of Care 151 mg/dl (65-105)
[2021-03-16] MEDS: ACETAMINOPHEN 325 MG TABLET 650 MG PO (13:05)
--- NOTE | 2021-03-16 14:05 | PM.IMPN ---
Progress Note: A&P Assessment and Plan (1) Bacteremia due to Klebsiella pneumoniae: Code(s): R78.81 - Bacteremia; B96.1 - Klebsiella pneumoniae [K. pneumoniae] as the cause of diseases classified elsewhere Status: Acute Assessment and Plan: -Leukocytosis normalized -multiple blood cultures positive for Klebsiella, most recent blood cultures pending -frequent fevers, appears to be stabilizing -at this time no sign of endocarditis, no clinical signs for endocarditis, no new murmur, Klebsiella infection, holding off on VALERIO -antibiotics: Imipenem -abdominal MRI concerning for renal cysts -consulted Dr. mcneal infectious disease -urine culture growing 10,000-49,000 entercoccus with no signs of UTI on UA and no symptoms -fluids needed on 03/14, blood pressure stabilized -Zofran for nausea -liver MRI: Heterogeneous diffuse hepatic steatosis and hemorrhagic renal cyst -CT abdomen pelvis: Shows 2 liver masses 1 in left hepatic and 1 in right hepatic lobe (2) Tachycardia-bradycardia syndrome: Code(s): I49.5 - Sick sinus syndrome Status: Acute Assessment and Plan: -Will continue monitoring on telemetry, holding off on any rate control medications with her episode of sinus arrest -if persistent symptoms may need a biventricular AICD pacemaker -history of extensive coronary disease status post CABG (3) Sinus pause: Code(s): I45.5 - Other specified heart block Status: Acute Assessment and Plan: 10 seconds sinus arrest seen on telemetry. Continue close monitoring IMU on telemetry (4) Atrial fibrillation with rapid ventricular response: Code(s): I48.91 - Unspecified atrial fibrillation Status: Acute Assessment and Plan: -Resolved, now in normal sinus rhythm with frequent PVCs -no beta-lashonda because of sinus arrest and bradyarrhythmia (5) Cardiomyopathy: Code(s): I42.9 - Cardiomyopathy, unspecified Status: Acute Assessment and Plan: Transthoracic echo: EF 30-35%, grade 1 diastolic dysfunction -history of CABG, significant coronary disease -continue statin (6) Systolic CHF: Code(s): I50.20 - Unspecified systolic (congestive) heart failure Status: Acute Assessment and Plan: See above (7) Insulin dependent diabetes mellitus: Status: Acute Assessment and Plan: -Patient has decreased p.o. intake -diabetic diet -home insulin regimen 42 units Lantus and sliding scale insulin -inpatient regimen: Decrease Lantus to 30 units once daily and keeping mealtime insulin NovoLog 4 units a.c., sliding scale insulin -blood sugars a down trending, will watch closely -A1c 12.8 -on home glimepiride (8) Myelolipoma of right adrenal gland: Code(s): D17.79 - Benign lipomatous neoplasm of other sites Status: Acute Additional Plan #Other chronic conditions -continue Lyrica -allopurinol for gout Diet: Diabetic DVT prophylaxis: Full-dose Lovenox especially with AFib arrhythmia will see if we need to continue, AFib appears to have resolved may be secondary infection Code status: Full code Disposition: Pending clinical course, watch in IMU for arrhythmia, may be home in a few days as she is doing with PT OT. Home is [place] for her Time Spent With Patient Time with patient: 25 - 35 minutes Subjective Date/time seen: 03/16/21 14:05 Patient examined. She feels well today, working well with physical therapy. She did complain of a new complaint of some phlegm but no fevers. Her heart rate has gone up to 100 with frequent PVCs, later down to 90s. With her previous bradycardia and sinus arrest will be very careful with any kind of rate controlling medications. We are treating her infection will continue to follow-up. Patient denies fever, chills, nausea, vomiting, diarrhea, chest pain, abdominal pain. Review of Systems Review of Systems: All systems reviewed & are unremarkable except as noted in HPI and below Exam
--- NOTE | 2021-03-16 15:00 | PM.PNCARD ---
Progress Note: A&P Assessment and Plan (1) Tachycardia-bradycardia syndrome: Code(s): I49.5 - Sick sinus syndrome Status: Acute Assessment and Plan: Patient with evidence of atrial fib with rapid ventricular with 10 second pause upon conversion to sinus rhythm. Due to pause, Siri arrhythmias, intermittent junctional escape beta-blockers have been discontinued completely. Discussed at length with patient and at bedside possibility of pacemaker implantation if uncontrolled tachy or Siri arrhythmias persist. However, if persistent bacteremia and or unclear to infection we must avoid invasive procedures much as possible and in particular permanent pacemaker implantation. While a temporary transvenous pacemaker would certainly be an option not indicated at this time. Continue close clinical observation. Avoid AV ra blocking agents for now. She is on systemic anticoagulation with enoxaparin. Follow H&H closely monitor for bleeding. We discussed at length dangers associated with this type of situation and the fact that she [place] of state. as before, stable today. Continue close telemetry observation. Reviewed the above once again the potential for tachy and/or Siri recurrence, however, she is tolerating present therapy well. (2) Sinus pause: Code(s): I45.5 - Other specified heart block Status: Acute Assessment and Plan: Prolonged pause upon conversion of the AFib as above indicative of significant underlying conduction system disease. (3) Atrial fibrillation with rapid ventricular response: Code(s): I48.91 - Unspecified atrial fibrillation Status: Acute Assessment and Plan: See above. Maintaining sinus rhythm thus far. Recurrence quite likely avoid AV ra blocking agent if at all possible. frequent PVCs. No significant or sustained tachyarrhythmias no pauses or high-grade AV blocks. As discussed with patient and her at length and once again walking fine line trying to avoid AV ra blocking agents at a risk for precipitating need for pacemaker implantation which should be avoided as much as possible given active infection. (4) Cardiomyopathy: Code(s): I42.9 - Cardiomyopathy, unspecified Status: Acute Assessment and Plan: chronicity of LV dysfunction EF 30-35% remains unclear. We do not have more recent record indicating EF. Patient is not currently in decompensated heart failure. She is unaware of for the particulars and cannot specify what type of surgery she had related to her sternotomy. per records EF 50% 2018 prior to emergent CABG were she had 95% distal left main, 90% ostial LAD, 95% circumflex, 50% RCA (5) Bacteremia due to Klebsiella pneumoniae: Code(s): R78.81 - Bacteremia; B96.1 - Klebsiella pneumoniae [K. pneumoniae] as the cause of diseases classified elsewhere Status: Acute Assessment and Plan: Per primary service and Infectious Disease. MRI of the abdomen without abscess noted. Repeat cultures March 14, 2021 negative to date x2. She continues to receive IV antibiotics. urine positive for Enterococcus species. I do not see an indication for transesophageal echocardiogram at this time as repeat cultures remain negative to date, No recurrent fever or escalation in leukocytosis (6) BERRY (acute kidney injury): Code(s): N17.9 - Acute kidney failure, unspecified Status: Acute Assessment and Plan: Monitor renal function closely. Fairly stable Creatinine 1.1. (7) Hypotension: Code(s): I95.9 - Hypotension, unspecified Status: Acute Assessment and Plan: Resolved. Monitor closely. Subjective Date/time seen: Date of service:03/16/21 15:00 Follow-up for atrial fibrillation, tachy-siri syndrome, sinus pauses, cardiomyopathy patient denies chest pain or shortness of breath this morning. No new issues overnight. Slept well but feels nauseous thi
[2021-03-16 16:36] LABS: Glucose Point of Care 193 mg/dl (65-105)
[2021-03-16] MEDS: INSULIN ASPART (*BKC) 100 UNITS/ML SUB-Q (18:05)
[2021-03-16 20:36] LABS: Glucose Point of Care 180 mg/dl (65-105)
[2021-03-16] MEDS: INSULIN GLARGINE (*BKC) 100 UNITS/ML 30 UNITS SUB-Q (21:01)
[2021-03-17] VITALS (15 sets, daily range): BP systolic 119–154; BP diastolic 56–68; PULSE 71–88; RESP 16–20; TEMP 36.3–36.6; O2SAT 97–100
[2021-03-17] MEDS: LEVOTHYROXINE SODIUM 112 MCG TABLET PO (05:40)
[2021-03-17] MEDS: ATORVASTATIN 40 MG TABLET 80 MG PO (08:17)
[2021-03-17] MEDS: PREGABALIN (*CRX) 75 MG CAPSULE 150 MG PO ×2 (08:17→18:04)
[2021-03-17] MEDS: allopurinoL 100 MG TABLET PO (08:19)
[2021-03-17] MEDS: COLCHICINE 0.6 MG TABLET PO (08:19)
[2021-03-17] MEDS: CLOPIDOGREL BISULFATE 75 MG TABLET PO (08:19)
[2021-03-17] MEDS: OMEGA 3 POLYUNSAT FATTY ACIDS 1 GM CAP 2 GM PO ×2 (08:19→18:04)
[2021-03-17] MEDS: ENOXAPARIN 100 MG/ML SYRINGE 90 MG SUB-Q ×2 (08:19→20:31)
[2021-03-17] MEDS: GLIMEPIRIDE 2 MG TABLET PO (08:19)
[2021-03-17] MEDS: ACETAMINOPHEN 325 MG TABLET 650 MG PO (08:25)
[2021-03-17] MEDS: INSULIN ASPART (*BKC) 100 UNITS/ML SUB-Q ×3 (08:31→18:04)
[2021-03-17 09:06] LABS: Glucose Point of Care 123 mg/dl (65-105)
--- NOTE | 2021-03-17 10:46 | PM.PNCARD ---
Progress Note: A&P Assessment and Plan (1) Tachycardia-bradycardia syndrome: Code(s): I49.5 - Sick sinus syndrome Status: Acute Assessment and Plan: -Patient developed Atrial fib RVR with 10 second pause upon conversion to sinus rhythm. Due to pause, siri arrhythmias, intermittent junctional escape, beta-blockers remain on hold. -She has indications given CAD, tachyarrhythmia, cardiomyopathy for BB therapy. Discussed risk vs benefit and ideal recommendation to reinitiate. However, pt has been stable maintaining SR. Will not challenge at this time. -She is aware as discussed of increased tachyarrhythmia risk off BB therapy. -She is on systemic anticoagulation with enoxaparin. Follow H&H closely monitor for bleeding. -We discussed at length dangers associated with this type of situation and the fact that [place]. Continue close telemetry observation. Monitor electrolytes. Follow H&H. (2) Sinus pause: Code(s): I45.5 - Other specified heart block Status: Acute Assessment and Plan: No recurrence. Prolonged pause upon conversion of the AFib as above indicative of significant underlying conduction system disease. (3) Atrial fibrillation with rapid ventricular response: Code(s): I48.91 - Unspecified atrial fibrillation Status: Acute Assessment and Plan: - No recurrence. See above. Maintaining sinus rhythm thus far. Recurrence quite likely but still would like to try and avoid AV ra blocking agent if at all possible. - No significant or sustained tachyarrhythmias no pauses or high-grade AV blocks. As discussed with patient and her at length and once again walking fine line trying to avoid AV ra blocking agents at a risk for precipitating need for pacemaker implantation which should be avoided as much as possible given active infection. Patient high risk for embolic stroke if recurrent atrial fibrillation and or flutter. CHADS2 Vasc score 5. Unless contraindication transition to oral systemic anticoagulation Eliquis 5 mg b.i.d. with discontinuation of therapeutic enoxaparin. In that case, continue aspirin, discontinue clopidogrel at discharge. (4) Cardiomyopathy: Code(s): I42.9 - Cardiomyopathy, unspecified Status: Acute Assessment and Plan: chronicity of LV dysfunction EF 30-35% remains unclear. We do not have more recent record indicating EF. Patient is not currently in decompensated heart failure. She is unaware of for the particulars and cannot specify what type of surgery she had related to her sternotomy. per records EF 50% 2018 prior to emergent CABG were she had 95% distal left main, 90% ostial LAD, 95% circumflex, 50% RCA -unfortunately, patient is well aware as discussed that she is at significantly increased risk for cardiovascular complications including atrial tachyarrhythmia as well as ventricular arrhythmias such as VT/VF given LV dysfunction and underlying CAD. Atypical chest pain most likely is musculoskeletal, reproducible on examination with flat troponin elevation earlier in hospitalization. Continue aspirin, statin. (5) Bacteremia due to Klebsiella pneumoniae: Code(s): R78.81 - Bacteremia; B96.1 - Klebsiella pneumoniae [K. pneumoniae] as the cause of diseases classified elsewhere Status: Acute Assessment and Plan: Per primary service and Infectious Disease. MRI of the abdomen without abscess noted. Repeat cultures March 14, 2021 negative to date x2. -She continues to receive IV antibiotics. urine positive for Enterococcus species. I do not see an indication for transesophageal echocardiogram at this time as repeat cultures remain negative to date, No recurrent fever or leukocytosis (6) BERRY (acute kidney injury): Code(s): N17.9 - Acute kidney failure, unspecified Status: Acute Assessment and Plan: Monitor renal function closely. Fairly stable (7) Hypoten
[2021-03-17 12:32] LABS: Glucose Point of Care 156 mg/dl (65-105)
[2021-03-17 17:36] LABS: Glucose Point of Care 124 mg/dl (65-105)
--- NOTE | 2021-03-17 20:25 | PM.IMPN ---
Progress Note: A&P Assessment and Plan (1) Myelolipoma of right adrenal gland: Code(s): D17.79 - Benign lipomatous neoplasm of other sites Status: Acute (2) Insulin dependent diabetes mellitus: Status: Acute (3) Tachycardia-bradycardia syndrome: Code(s): I49.5 - Sick sinus syndrome Status: Acute (4) Sinus pause: Code(s): I45.5 - Other specified heart block Status: Acute (5) Septicemia: Code(s): A41.9 - Sepsis, unspecified organism Status: Acute (6) Atrial fibrillation with rapid ventricular response: Code(s): I48.91 - Unspecified atrial fibrillation Status: Acute (7) Cardiomyopathy: Code(s): I42.9 - Cardiomyopathy, unspecified Status: Acute (8) Leg pain, left: Code(s): M79.605 - Pain in left leg Status: Acute (9) Bacteremia due to Klebsiella pneumoniae: Code(s): R78.81 - Bacteremia; B96.1 - Klebsiella pneumoniae [K. pneumoniae] as the cause of diseases classified elsewhere Status: Acute (10) Hypotension: Code(s): I95.9 - Hypotension, unspecified Status: Acute (11) Systolic CHF: Code(s): I50.20 - Unspecified systolic (congestive) heart failure Status: Acute (12) Elevated troponin: Code(s): R77.8 - Other specified abnormalities of plasma proteins Status: Acute (13) BERRY (acute kidney injury): Code(s): N17.9 - Acute kidney failure, unspecified Status: Acute (14) Congestive heart failure: Code(s): I50.9 - Heart failure, unspecified Status: Acute (15) Acute hyperglycemia: Code(s): R73.9 - Hyperglycemia, unspecified Status: Acute Additional Plan Will discuss with cardiology and ID regarding discharging patient on p.o. antibiotics and following up as outpatient in [place] for her current condition Subjective Date/time seen: 03/17/21 20:25 Remains stable Review of Systems Review of Systems: A 10 point review systems conducted which was otherwise negative Exam Narrative: - GENERAL: Pleasant elderly woman acute distress sitting comfortably in chair. - EYES: EOMI. Anicteric. - HENT: Moist mucous membranes. - LUNGS: Clear to auscultation bilaterally, no wheezing, rhonchi, or rales. - CARDIOVASCULAR: Regular rate and rhythm. No murmur. - ABDOMEN: Soft, non-tender and non-distended. No palpable masses. - EXTREMITIES: No edema. Peripheral pulses 2+. Non-tender. - NEUROLOGIC: No focal neurological deficits. CN II-XII grossly intact. - PSYCHIATRIC: Awake, Alert and oriented x 3. Appropriate mood and affect. - SKIN: No rashes or lesions. Warm. - LYMPH: No cervical lymphadenopathy. Objective Data Vital Signs Vital Signs: Vital Signs - 24 hr 03/16/21 22:00 03/16/21 23:43 03/17/21 00:00 Temperature 98.0 F Pulse Rate 78 82 76 Respiratory Rate 20 20 Blood Pressure 128/58 L Pulse Oximetry 97 97 03/17/21 02:00 03/17/21 04:00 03/17/21 06:00 Temperature 97.8 F Pulse Rate 74 88 82 Respiratory Rate 20 Blood Pressure 137/68 Pulse Oximetry 97 03/17/21 08:00 03/17/21 10:00 03/17/21 11:03 Temperature 97.5 F L Pulse Rate 78 71 Respiratory Rate 18 Blood Pressure 146/62 H Pulse Oximetry 98 98 03/17/21 11:47 03/17/21 12:00 03/17/21 14:00 Temperature 97.4 F L Pulse Rate 72 75 71 Respiratory Rate 16 Blood Pressure 119/56 L Pulse Oximetry 98 03/17/21 16:00 03/17/21 18:00 03/17/21 19:04 Temperature 97.8 F 97.7 F Pulse Rate 88 80 78 Respiratory Rate 18 16 Blood Pressure 141/57 H 154/67 H Pulse Oximetry 100 99 Intake/Output Intake/Output: Intake & Output 03/14/21 03/15/21 03/16/21 03/17/21 23:59 23:59 23:59 23:59 Intake Total 2180 3040 2290 1270 Output Total 1900 600 Balance 2180 3040 390 670 Meds/Results Medications: Active Medications Generic Name Dose Route Start Last Admin Trade Name Freq PRN Reason Stop Dose Admin Acetaminophen 650 mg 03/10/21 00:08 03/07
[2021-03-17 20:37] LABS: Glucose Point of Care 95 mg/dl (65-105)
[2021-03-18] VITALS (14 sets, daily range): BP systolic 124–152; BP diastolic 59–100; PULSE 67–99; RESP 16–20; TEMP 36.3–37; O2SAT 97–100
[2021-03-18 05:10] LABS: Basophils Percent Auto 0.2 % (0.2-1.2); Eosinophils Absolute Auto 0.1 K/mm3 (0-0.3); Eosinophils Percent Auto 1.5 % (0-4.4); Hematocrit 31.2 % (37.0-47.0); Hemoglobin 9.9 g/dL (12.0-15.0); Immature Granulocyte Absolute 0.15 K/mm3 (0.00-0.031); Immature Granulocyte Percent A 1.6 % (0-0.5); Lymphocytes Absolute Auto 1.42 K/mm3 (0.9-3.2); Lymphocytes Percent Auto 15.2 % (18.3-44.2); Mean Corpuscular HGB Conc 31.7 g/dl (32-36); Mean Corpuscular Hemoglobin 28.7 pg (26-34); Mean Corpuscular Volume 90.4 fl (80-100); Mean Platelet Volume 11.5 fl (7.4-10.4); Monocytes Absolute Auto 0.7 K/mm3 (0.1-0.6); Monocytes Percent Auto 7.9 % (2.6-8.5); Neutrophils Absolute Auto 6.9 K/mm3 (1.3-6.7); Neutrophils Percent Auto 73.6 % (45.5-73.1); Platelet Count Result 308 k/mm3 (150-375); Red Blood Count 3.45 M/mm3 (4.2-5.4); Red Cell Distribution Width 14.8 % (11.5-14.5); White Blood Count 9.4 K/mm3 (4.5-10.0)
[2021-03-18] MEDS: LEVOTHYROXINE SODIUM 112 MCG TABLET PO (05:26)
[2021-03-18 05:30] LABS: Alanine Aminotransferase 20 U/L (4-35); Alkaline Phosphatase 119 U/L (38-126); Anion Gap 9 mmol/L (8-16); Aspartate Amino Transferase 24 U/L (14-36); Bilirubin,Total 0.5 mg/dL (0.2-1.3); Blood Urea Nitrogen 13 mg/dL (7-17); Carbon Dioxide 23 mmol/L (22-30); Chloride 108 mmol/L (98-107); Estimated CRCL calculation 55 ml/min; Estimated Glomerular Filt Rate > 60; Glucose 87 mg/dL (65-110); Potassium 3.8 mmol/L (3.4-5.0); Sodium 140 mmol/L (137-145)
[2021-03-18 08:16] LABS: Glucose Point of Care 122 mg/dl (65-105)
[2021-03-18] MEDS: ENOXAPARIN 100 MG/ML SYRINGE 90 MG SUB-Q (09:16)
[2021-03-18] MEDS: OMEGA 3 POLYUNSAT FATTY ACIDS 1 GM CAP 2 GM PO ×2 (09:16→17:12)
[2021-03-18] MEDS: GLIMEPIRIDE 2 MG TABLET PO (09:16)
[2021-03-18] MEDS: CLOPIDOGREL BISULFATE 75 MG TABLET PO (09:16)
[2021-03-18] MEDS: INSULIN ASPART (*BKC) 100 UNITS/ML SUB-Q ×4 (09:16→17:12)
[2021-03-18] MEDS: allopurinoL 100 MG TABLET PO (09:16)
[2021-03-18] MEDS: COLCHICINE 0.6 MG TABLET PO (09:16)
[2021-03-18] MEDS: ATORVASTATIN 40 MG TABLET 80 MG PO (09:16)
[2021-03-18] MEDS: PREGABALIN (*CRX) 75 MG CAPSULE 150 MG PO ×2 (09:27→17:12)
[2021-03-18 12:02] LABS: Glucose Point of Care 205 mg/dl (65-105)
--- NOTE | 2021-03-18 13:30 | PM.PNCARD ---
Progress Note: A&P Assessment and Plan (1) Tachycardia-bradycardia syndrome: Code(s): I49.5 - Sick sinus syndrome <ARTEM Dawn - Last Filed: 03/18/21 13:56> Status: Acute <ARTEM Dawn - Last Filed: 03/18/21 13:56> Assessment and Plan: -Patient developed Atrial fib RVR with 10 second pause upon conversion to sinus rhythm. Due to pause, siri arrhythmias, intermittent junctional escape, beta-blockers remain on hold. -She has indications given CAD, tachyarrhythmia, cardiomyopathy for BB therapy. Discussed risk vs benefit and ideal recommendation to reinitiate. However, pt has been stable maintaining SR. Will not challenge at this time. -She is aware as discussed of increased tachyarrhythmia risk off BB therapy. -She has been on enoxaparin for systemic anticoagulation. Transition to eliquis 5mg q12 in anticipation for discharge likely tomorrow. -OK to transfer to med/tele. Continue close telemetry observation. Monitor electrolytes. Follow H&H. <ARTEM Dawn - Last Filed: 03/18/21 13:56> (2) Sinus pause: Code(s): I45.5 - Other specified heart block <ARTEM Dawn - Last Filed: 03/18/21 13:56> Status: Acute <ARTEM Dawn - Last Filed: 03/18/21 13:56> Assessment and Plan: No recurrence. Prolonged pause upon conversion of the AFib as above indicative of significant underlying conduction system disease. <ARTEM Dawn - Last Filed: 03/18/21 13:56> (3) Atrial fibrillation with rapid ventricular response: Code(s): I48.91 - Unspecified atrial fibrillation <ARTEM Dawn - Last Filed: 03/18/21 13:56> Status: Acute <ARTEM Dawn - Last Filed: 03/18/21 13:56> Assessment and Plan: - No recurrence. See above. Maintaining sinus rhythm thus far. Recurrence quite likely but still would like to try and avoid AV ra blocking agent if at all possible. - No significant or sustained tachyarrhythmias no pauses or high-grade AV blocks. As discussed with patient and her at length and once again walking fine line trying to avoid AV ra blocking agents at a risk for precipitating need for pacemaker implantation which should be avoided as much as possible given active infection. Patient high risk for embolic stroke if recurrent atrial fibrillation and or flutter. CHADS2 Vasc score 5. Unless contraindication transition to oral systemic anticoagulation Eliquis 5 mg b.i.d. with discontinuation of therapeutic enoxaparin. In that case, continue aspirin, discontinue clopidogrel at discharge. <ARTEM Dawn - Last Filed: 03/18/21 13:56> (4) Cardiomyopathy: Code(s): I42.9 - Cardiomyopathy, unspecified <ARTEM Dawn - Last Filed: 03/18/21 13:56> Status: Acute <ARTEM Dawn - Last Filed: 03/18/21 13:56> Assessment and Plan: chronicity of LV dysfunction EF 30-35% remains unclear. We do not have more recent record indicating EF. Patient is not currently in decompensated heart failure. She is unaware of for the particulars and cannot specify what type of surgery she had related to her sternotomy. per records EF 50% 2018 prior to emergent CABG were she had 95% distal left main, 90% ostial LAD, 95% circumflex, 50% RCA -unfortunately, patient is well aware as discussed that she is at significantly increased risk for cardiovascular complications including atrial tachyarrhythmia as well as ventricular arrhythmias such as VT/VF given LV dysfunction and underlying CAD. Atypical chest pain most likely is musculoskeletal, reproducible on examination with flat troponin elevation earlier in hospitalization. Continue aspirin, statin. <ARTEM Dawn - Last Filed: 03/18/21 13:56> (5) Bacteremia due to Klebsiella pneumoniae: Code(s): R78.81 - Bacteremia; B96.1 - Klebsiella pneumoniae [K. pneumoniae] as the cause
--- NOTE | 2021-03-18 14:19 | PM.IMPN ---
Progress Note: A&P Assessment and Plan (1) Myelolipoma of right adrenal gland: Code(s): D17.79 - Benign lipomatous neoplasm of other sites Status: Acute (2) Insulin dependent diabetes mellitus: Status: Acute (3) Tachycardia-bradycardia syndrome: Code(s): I49.5 - Sick sinus syndrome Status: Acute (4) Sinus pause: Code(s): I45.5 - Other specified heart block Status: Acute (5) Septicemia: Onset Date: ~03/09/21 Code(s): A41.9 - Sepsis, unspecified organism Status: Resolved (6) Atrial fibrillation with rapid ventricular response: Code(s): I48.91 - Unspecified atrial fibrillation Status: Acute (7) Cardiomyopathy: Qualifiers: Cardiomyopathy type: ischemic Qualified Code(s): I25.5 - Ischemic cardiomyopathy Code(s): I42.9 - Cardiomyopathy, unspecified Status: Acute (8) Systolic CHF: Qualifiers: Heart failure chronicity: chronic Qualified Code(s): I50.22 - Chronic systolic (congestive) heart failure Code(s): I50.20 - Unspecified systolic (congestive) heart failure Status: Acute (9) Bacteremia due to Klebsiella pneumoniae: Code(s): R78.81 - Bacteremia; B96.1 - Klebsiella pneumoniae [K. pneumoniae] as the cause of diseases classified elsewhere Status: Resolved (10) Elevated troponin: Code(s): R77.8 - Other specified abnormalities of plasma proteins Status: Acute (11) Acute hyperglycemia: Code(s): R73.9 - Hyperglycemia, unspecified Status: Acute (12) Dehydration: Code(s): E86.0 - Dehydration Status: Acute (13) Generalized weakness: Code(s): R53.1 - Weakness Status: Acute (14) Renal cyst: Code(s): N28.1 - Cyst of kidney, acquired Status: Acute Additional Plan New onset AFib: Patient is being started on Eliquis 5 mg b.i.d. by Cardiology, for new onset AFib If she tolerates it well overnight, she will be discharged tomorrow She is from [place], so she will have to drive back and it is being discussed with Cardiology that if driving this distance would be appropriate with a current heart condition Tachy-Shakeel syndrome: The past cardiology recommendation, patient will be taken off of all sorts of rate control medications It will be reasonable that patient keep the follow-up with cardiology in [place], when she gets home She should be evaluated for possible pacemaker placement, however prior to this she might need an event monitor She understands the risks her cardiac condition and sudden deterioration with this kind of arrhythmia. New onset HFrEF: Continue medications as per Cardiology recommendations Klebsiella bacteremia: As per documentation by infectious diseases physician on 03/12 patient will be discharged on cefdinir for 10 days p.o. Since repeat blood cultures from 03/14 have thus far been negative, patient will be discharged and advised to follow up with abdominal ultrasound for concerns regarding the 1st CT findings. Hemorrhagic renal cyst: Patient will follow-up as outpatient with PCP when reaches [place]. Subjective Date/time seen: 03/18/21 14:19 75-year-old female with past medical history significant for coronary artery disease status post CABG, type 2 diabetes mellitus, hypertension, hyperlipidemia and new onset heart failure with reduced ejection fraction presented with complaints of fever and elevated blood sugars. She was managed as a case of Klebsiella pneumoniae bacteremia. He received IV antibiotics for this purpose and most recent blood cultures from 03/14 are found to be negative. A CT abdomen pelvis performed on 03/09 was positive for liver masses which was concerning for malignancy. An ultrasound abdomen was performed that did not corroborate to such findings. An MRI of the abdomen was thus performed and only revealed hepatic steatosis with no masses in the liver noted. Urinalysis was wa
[2021-03-18 16:25] LABS: Glucose Point of Care 144 mg/dl (65-105)
[2021-03-18] MEDS: APIXABAN 5 MG TABLET PO (20:57)
[2021-03-18] MEDS: INSULIN GLARGINE (*BKC) 100 UNITS/ML 30 UNITS SUB-Q (20:57)
[2021-03-18 21:10] LABS: Glucose Point of Care 178 mg/dl (65-105)
[2021-03-19] VITALS (7 sets, daily range): BP systolic 136–150; BP diastolic 56–99; PULSE 68–88; RESP 16–100; TEMP 36.8–37.1; O2SAT 16–100
[2021-03-19 05:52] LABS: Hemoglobin 9.4 g/dL (12.0-15.0); Mean Corpuscular HGB Conc 31.3 g/dl (32-36); Mean Corpuscular Hemoglobin 28.7 pg (26-34); Mean Corpuscular Volume 91.5 fl (80-100); Mean Platelet Volume 11.5 fl (7.4-10.4); Platelet Count Result 322 k/mm3 (150-375); Red Blood Count 3.28 M/mm3 (4.2-5.4); Red Cell Distribution Width 14.6 % (11.5-14.5); White Blood Count 6.7 K/mm3 (4.5-10.0)
[2021-03-19 06:14] LABS: Alanine Aminotransferase 18 U/L (4-35); Albumin Level 2.8 g/dL (3.5-5.1); Alkaline Phosphatase 105 U/L (38-126); Anion Gap 8 mmol/L (8-16); Aspartate Amino Transferase 28 U/L (14-36); Bilirubin,Total 0.3 mg/dL (0.2-1.3); Blood Urea Nitrogen 12 mg/dL (7-17); Calcium 8.7 mg/dL (8.4-10.2); Carbon Dioxide 25 mmol/L (22-30); Chloride 105 mmol/L (98-107); Estimated CRCL calculation 54 ml/min; Estimated Glomerular Filt Rate > 60; Glucose 99 mg/dL (65-110); Potassium 3.8 mmol/L (3.4-5.0); Sodium 138 mmol/L (137-145)
[2021-03-19] MEDS: LEVOTHYROXINE SODIUM 112 MCG TABLET PO (06:23)
[2021-03-19] MEDS: INSULIN ASPART (*BKC) 100 UNITS/ML SUB-Q ×3 (08:30→11:50)
[2021-03-19] MEDS: ATORVASTATIN 40 MG TABLET 80 MG PO (08:32)
[2021-03-19] MEDS: COLCHICINE 0.6 MG TABLET PO (08:32)
[2021-03-19] MEDS: OMEGA 3 POLYUNSAT FATTY ACIDS 1 GM CAP 2 GM PO (08:32)
[2021-03-19] MEDS: APIXABAN 5 MG TABLET PO (08:33)
[2021-03-19] MEDS: GLIMEPIRIDE 2 MG TABLET PO (08:33)
[2021-03-19] MEDS: allopurinoL 100 MG TABLET PO (08:33)
[2021-03-19] MEDS: CLOPIDOGREL BISULFATE 75 MG TABLET PO (08:33)
[2021-03-19 08:39] LABS: Glucose Point of Care 121 mg/dl (65-105)
[2021-03-19] MEDS: PREGABALIN (*CRX) 75 MG CAPSULE 150 MG PO (08:46)
[2021-03-19] MEDS: ACETAMINOPHEN 325 MG TABLET 650 MG PO (09:58)
--- NOTE | 2021-03-19 10:37 | PM.PNCARD ---
Progress Note: A&P Assessment and Plan (1) Tachycardia-bradycardia syndrome: Code(s): I49.5 - Sick sinus syndrome Status: Acute Assessment and Plan: -Patient developed Atrial fib RVR with 10 second pause upon conversion to sinus rhythm. Due to pause, siri arrhythmias, intermittent junctional escape, beta-blockers remain on hold. -She has indications given CAD, tachyarrhythmia, cardiomyopathy for BB therapy. Discussed risk vs benefit and ideal recommendation to reinitiate. However, pt has been stable maintaining SR. Will not challenge at this time. -She is aware as discussed of increased tachyarrhythmia risk off BB therapy. -continue Eliquis 5mg q12. Tolerating well. -H&H stable. Stable for discharge home from cardiac perspective. No new recommendations at this time. Patient very appreciative of the care she has received. (2) Sinus pause: Code(s): I45.5 - Other specified heart block Status: Acute Assessment and Plan: No recurrence. Prolonged pause upon conversion of the AFib as above indicative of significant underlying conduction system disease. (3) Atrial fibrillation with rapid ventricular response: Code(s): I48.91 - Unspecified atrial fibrillation Status: Acute Assessment and Plan: - No recurrence. See above. Maintaining sinus rhythm thus far. Recurrence quite likely but still would like to try and avoid AV ra blocking agent if at all possible. - No significant or sustained tachyarrhythmias no pauses or high-grade AV blocks. As discussed with patient and her at length and once again walking fine line trying to avoid AV ra blocking agents at a risk for precipitating need for pacemaker implantation which should be avoided as much as possible given active infection. Patient high risk for embolic stroke if recurrent atrial fibrillation and or flutter. CHADS2 Vasc score 5. Eliquis 5 mg b.i.d. In that case, continue aspirin, discontinue clopidogrel at discharge. (4) Cardiomyopathy: Qualifiers: Cardiomyopathy type: ischemic Qualified Code(s): I25.5 - Ischemic cardiomyopathy Code(s): I42.9 - Cardiomyopathy, unspecified Status: Acute Assessment and Plan: chronicity of LV dysfunction EF 30-35% remains unclear. We do not have more recent record indicating EF. Patient is not currently in decompensated heart failure. She is unaware of for the particulars and cannot specify what type of surgery she had related to her sternotomy. per records EF 50% 2018 prior to emergent CABG were she had 95% distal left main, 90% ostial LAD, 95% circumflex, 50% RCA -unfortunately, patient is well aware as discussed that she is at significantly increased risk for cardiovascular complications including atrial tachyarrhythmia as well as ventricular arrhythmias such as VT/VF given LV dysfunction and underlying CAD. Atypical chest pain most likely is musculoskeletal, reproducible on examination with flat troponin elevation earlier in hospitalization. Continue aspirin, statin. Resume DEBORAH-inhibitor, lisinopril 10 mg daily. Will hold off on re-initiation hydrochlorothiazide at this time. 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 (5) Bacteremia due to Klebsiella pneumoniae: Code(s): R78.81 - Bacteremia; B96.1 - Klebsiella pneumoniae [K. pneumoniae] as the cause of diseases classified elsewhere Status: Resolved Assessment and Plan: Per primary service and Infectious Disease. MRI of the abdomen without abscess noted. Repeat cultures March 14, 2021 negative to date x2. (6) BERRY (acute kidney injury): Code(s): N17.9 - Acute kidney failure, unspecified Status: Acute Assessment and Plan: Monitor renal function closely. Resolved. (7) Hypotension: Code(s): I95.9 - Hypotension, unspecified Status: Acute Assessment and Plan: Re
[2021-03-19 11:42] LABS: Glucose Point of Care 233 mg/dl (65-105)
--- NOTE | 2021-03-19 12:03 | PCDIET ---
Weekly nutritional screen. Patient is tolerating current diet with adequate intake. No weight loss reported. No nutritional needs at this time.
--- NOTE | 2021-03-19 13:42 | PM.DS ---
DS: Admitting Diagnosis Admitting Diagnosis Bacteremia DS: Discharge Diagnosis Discharge Diagnosis (1) Renal cyst: Code(s): N28.1 - Cyst of kidney, acquired Status: Acute (2) Myelolipoma of right adrenal gland: Code(s): D17.79 - Benign lipomatous neoplasm of other sites Status: Acute (3) Insulin dependent diabetes mellitus: Status: Acute (4) Tachycardia-bradycardia syndrome: Code(s): I49.5 - Sick sinus syndrome Status: Acute (5) Sinus pause: Code(s): I45.5 - Other specified heart block Status: Acute (6) Septicemia: Onset Date: ~03/09/21 Code(s): A41.9 - Sepsis, unspecified organism Status: Resolved (7) Atrial fibrillation with rapid ventricular response: Code(s): I48.91 - Unspecified atrial fibrillation Status: Acute (8) Cardiomyopathy: Qualifiers: Cardiomyopathy type: ischemic Qualified Code(s): I25.5 - Ischemic cardiomyopathy Code(s): I42.9 - Cardiomyopathy, unspecified Status: Acute (9) Systolic CHF: Qualifiers: Heart failure chronicity: chronic Qualified Code(s): I50.22 - Chronic systolic (congestive) heart failure Code(s): I50.20 - Unspecified systolic (congestive) heart failure Status: Acute (10) Bacteremia due to Klebsiella pneumoniae: Code(s): R78.81 - Bacteremia; B96.1 - Klebsiella pneumoniae [K. pneumoniae] as the cause of diseases classified elsewhere Status: Resolved (11) Elevated troponin: Code(s): R77.8 - Other specified abnormalities of plasma proteins Status: Acute (12) BERRY (acute kidney injury): Code(s): N17.9 - Acute kidney failure, unspecified Status: Acute (13) Generalized weakness: Code(s): R53.1 - Weakness Status: Acute DS: Summary Hospital Course Reason for hospitalization: Fever weakness sepsis Hospital Course: 75-year-old female with past medical history significant for coronary artery disease status post CABG, type 2 diabetes mellitus, hypertension, hyperlipidemia and new onset heart failure with reduced ejection fraction presented with complaints of fever and elevated blood sugars. She was managed as a case of Klebsiella pneumoniae bacteremia. He received IV antibiotics for this purpose and most recent blood cultures from 03/[address] abdomen pelvis performed on 03/09 was positive for liver masses which was concerning for malignancy. An ultrasound abdomen was performed that did not corroborate with such findings. This was followed up with an MRI of the abdomen that only revealed hepatic steatosis with no masses in the liver. Urinalysis was was concerning for infection and urine cultures were seen to be growing Enterococcus, however the number of colonies was not concerning for active infection. Imaging of the abdomen also revealed hemorrhagic cyst to the kidney and hence she was treated for complicated UTI. During her hospital stay she was also noted to have AFib with RVR and was started on beta blockers and anticoagulation. However overnight on 03/15, patient was noted to have bradyarrhythmias, intermittent junctional escape rhythm on beta blockers and thus they were discontinued by Cardiology. There was some concern regarding permanent pacemaker placement, however given active infection it was deferred for a later time. She continued to stay stable and is being discharged possibly be discharged tomorrow after being started on Eliquis for anticoagulation 1. New onset AFib: Patient is being started on Eliquis 5 mg b.i.d. by Cardiology, for new onset AFib If she tolerates it well overnight, she will be discharged tomorrow She is from [place], so she will have to drive back. It was discussed with Cardiology and patient is now being discharged on Eliquis 5 mg p.o. b.i.d. 2. Tachy-Shakeel syndrome: As per cardiology recommendation, patient will be taken off of all sorts of rate control
== END 2021-03-19 15:40 | disposition home or self-care (01) | DRG 871 ==
LOC: ANHED 03-10 00:17 → ANHIMU 03-10 03:29 → ANH2MED 03-22 17:16 → ANHIMU 03-22 17:16
PROVIDERS: Internal Medicine; Physician Assistant; Admitting Provider Internal Medicine; Emergency Provider Emergency Medicine; Visit Provider Student in an Organized Health Care Education/Training Program
DX: A41.59 Other Gram-negative sepsis (principal); I50.21 Acute systolic (congestive) heart failure; N17.9 Acute kidney failure, unspecified; N39.0 Urinary tract infection, site not specified; I11.0 Hypertensive heart disease with heart failure; B96.1 Klebsiella pneumoniae [K. pneumoniae] as the cause of diseases classified elsewhere; I48.91 Unspecified atrial fibrillation; Z20.822 Contact with and (suspected) exposure to COVID-19; K76.0 Fatty (change of) liver, not elsewhere classified; I49.5 Sick sinus syndrome; B95.2 Enterococcus as the cause of diseases classified elsewhere; N28.1 Cyst of kidney, acquired; D17.79 Benign lipomatous neoplasm of other sites; E86.0 Dehydration; E78.5 Hyperlipidemia, unspecified; I25.5 Ischemic cardiomyopathy; I95.9 Hypotension, unspecified; I25.10 Atherosclerotic heart disease of native coronary artery without angina pectoris; M79.605 Pain in left leg; E11.65 Type 2 diabetes mellitus with hyperglycemia; Z96.652 Presence of left artificial knee joint; E66.9 Obesity, unspecified; Z68.35 Body mass index [BMI] 35.0-35.9, adult; Z95.1 Presence of aortocoronary bypass graft; I25.2 Old myocardial infarction; Z87.891 Personal history of nicotine dependence; Z90.49 Acquired absence of other specified parts of digestive tract
CPT/HCPCS: 36415; 71046; 74176; 74177; 74183; 76705; 80048; 80053; 80076; 80307; 81001; 82948; 83036; 83605; 83690; 83735; 83880; 84443; 84484; 85025; 85027; 86140; 87040; 87077; 87086; 87088; 87186; 87804; 93005; 93306; 93971; 96361; 96365; 96366; 96367; 96372; 96375; 97110; 97116; 97161; 97165; 97530; 97535; 99285; A9270; A9577; C9803; G0378; J0131; J0696; J0743; J1650; J1815; J1940; J2405; J3475; J7030; J7040; Q9967; U0003; U0005